=== PATIENT | male | born 1965 | race American Indian/Alaskan Native ===

== ENCOUNTER → 2023-06-16 10:42 | Outpatient (CLI) | payer OTHER, MEDICAID, SELFPAY ==
[2023-06-16 19:01] LABS: Add Manual Diff / Slide Review NO; Basophils Absolute Auto 100 /uL (0-100); Basophils Percent Auto 0.9 % (0-2); Eosinophils Absolute Auto 300 /uL (0-450); Eosinophils Percent Auto 5.7 % (2-4); Hematocrit 41.5 % (41-53); Hemoglobin 14.2 g/dL (13.5-17.5); Lymphocytes Absolute Auto 1600 /uL (1100-4500); Lymphocytes Percent Auto 27.7 % (25-40); Mean Corpuscular HGB Conc 34.1 % (30-36); Monocytes Absolute Auto 800 /uL (0-900); Monocytes Percent Auto 13.2 % (3-14); Neutrophils Absolute Auto 3000 /uL (1500-7000); Neutrophils Percent Auto 52.5 % (50-75); Platelet Count 201 X10^3/uL (150-400); Red Blood Cell Count 4.72 X10^6/uL (4.5-5.9); White Blood Cell Count 5.7 X10^3/uL (4.5-11.0)
[2023-06-16 19:27] LABS: Alanine Aminotransferase 21 IU/L (<50); Albumin Globulin Ratio 1.2 (1.0-2.8); Alkaline Phosphatase 63 U/L (38-126); Aspartate Aminotransferase 24 IU/L (17-59); BUN Creatinine Ratio 21.7 (6-22); Bilirubin Total 0.4 mg/dL (0.2-1.3); Blood Urea Nitrogen 20 mg/dL (9-20); Calcium 9.6 mg/dL (8.4-10.2); Carbon Dioxide 30 mmol/L (22-32); Chloride 103 mmol/L (98-107); Cholesterol 169 mg/dL (140-199); Estimated Glomerular Filt Rate > 60 mL/min (>60); Globulin 3.3 g/dL (1.7-4.1); Glucose 90 mg/dL (70-100); HDL Cholesterol 32 mg/dL (40-60); HEMOLYSIS < 15 (0-50); LDL Cholesterol Calculated 96 mg/dL (<100); Potassium 4.6 mmol/L (3.4-5.1); Sodium 140 mmol/L (137-145); Total Protein 7.3 g/dL (6.3-8.2); Triglycerides 206 mg/dL (35-150)
[2023-06-16 20:11] LABS: TSH w/ Reflex to FT4 0.51 uIU/mL (0.47-4.68)
== END ==
PROVIDERS: PCP Physician Assistant Medical; Visit Provider Physician Assistant Medical
DX: Z11.2 Encounter for screening for other bacterial diseases (principal)
CPT/HCPCS: 80053; 80061; 84443; 85025

== ENCOUNTER → 2023-10-25 11:55 | Outpatient (CLI) | payer OTHER, MEDICAID, SELFPAY | PROVIDERS: PCP Physician Assistant Medical; Visit Provider Physician Assistant Medical | DX: T14.8XXA Other injury of unspecified body region, initial encounter (principal); W50.3XXA Accidental bite by another person, initial encounter | CPT/HCPCS: 87070; 87075; 87205 ==

== ENCOUNTER → 2023-11-02 13:03 | Outpatient (CLI) | payer OTHER, MEDICAID, SELFPAY ==
[2023-11-02 19:28] LABS: Add Manual Diff / Slide Review NO; Basophils Absolute Auto 0 /uL (0-100); Basophils Percent Auto 0.8 % (0-2); Eosinophils Absolute Auto 100 /uL (0-450); Eosinophils Percent Auto 2.1 % (2-4); Hemoglobin 13.8 g/dL (13.5-17.5); Lymphocytes Absolute Auto 1500 /uL (1100-4500); Lymphocytes Percent Auto 30.8 % (25-40); Mean Corpuscular HGB Conc 34.5 % (30-36); Mean Corpuscular Hemoglobin 30.5 PG (26-34); Mean Corpuscular Volume 88.4 fL (80-100); Monocytes Absolute Auto 700 /uL (0-900); Monocytes Percent Auto 13.6 % (3-14); Neutrophils Absolute Auto 2600 /uL (1500-7000); Neutrophils Percent Auto 52.7 % (50-75); Platelet Count 257 X10^3/uL (150-400); Red Blood Cell Count 4.53 X10^6/uL (4.5-5.9); Red Cell Distribution Width 12.8 % (11.6-14.8)
[2023-11-02 19:55] LABS: Alanine Aminotransferase 20 IU/L (<50); Albumin 4.4 g/dL (3.5-5.0); Albumin Globulin Ratio 1.5 (1.0-2.8); Alkaline Phosphatase 73 U/L (38-126); Aspartate Aminotransferase 27 IU/L (17-59); BUN Creatinine Ratio 30.4 (6-22); Bilirubin Total 0.6 mg/dL (0.2-1.3); Blood Urea Nitrogen 28 mg/dL (9-20); Calcium 9.7 mg/dL (8.4-10.2); Carbon Dioxide 29 mmol/L (22-32); Chloride 104 mmol/L (98-107); Estimated Glomerular Filt Rate > 60 mL/min (>60); Glucose 95 mg/dL (70-100); HEMOLYSIS < 15 (0-50); Potassium 3.8 mmol/L (3.4-5.1); Sodium 138 mmol/L (137-145); Total Protein 7.4 g/dL (6.3-8.2)
[2023-11-02 20:12] LABS: TSH w/ Reflex to FT4 0.77 uIU/mL (0.47-4.68)
== END ==
PROVIDERS: PCP Physician Assistant Medical; Visit Provider Physician Assistant Medical
DX: R21 Rash and other nonspecific skin eruption (principal); Z22.322 Carrier or suspected carrier of Methicillin resistant Staphylococcus aureus; Z11.2 Encounter for screening for other bacterial diseases; R53.83 Other fatigue
CPT/HCPCS: 80053; 84443; 85025

== ENCOUNTER → 2024-01-25 12:32 | Outpatient (CLI) | payer OTHER, MEDICAID, SELFPAY ==
[2024-01-25 20:22] LABS: HEMOLYSIS < 15 (0-50)
[2024-01-25 20:28] LABS: Blood Urea Nitrogen 20 mg/dL (9-20); Sodium 139 mmol/L (137-145)
[2024-01-25 20:29] LABS: BUN Creatinine Ratio 19.6 (6-22); Calcium 8.9 mg/dL (8.4-10.2); Carbon Dioxide 26 mmol/L (22-32); Chloride 109 mmol/L (98-107); Estimated Glomerular Filt Rate > 60 mL/min (>60); Glucose 100 mg/dL (70-100); Potassium 4.3 mmol/L (3.4-5.1)
[2024-01-25 21:15] LABS: HIV 1 & 2 Ab/Ag 4th Gen Combo NEGATIVE (NEGATIVE); Hep C Virus Ab w/Reflex Quant REACTIVE s/c (NEGATIVE)
[2024-01-25 23:07] LABS: Folate 9.3 ng/mL (2.76-20.0); Vitamin B12 311 pg/mL (239-931)
[2024-01-27 05:14] LABS: RPR Screen Non Reactive (Non Reactive)
[2024-01-27 21:09] LABS: Treponema pallidum Antibodies Non Reactive (Non Reactive)
== END ==
PROVIDERS: PCP Physician Assistant Medical; Referring Provider Family Medicine; Visit Provider Family Medicine
DX: F22 Delusional disorders (principal); Z87.820 Personal history of traumatic brain injury; F07.81 Postconcussional syndrome; R41.840 Attention and concentration deficit; R21 Rash and other nonspecific skin eruption; R41.89 Other symptoms and signs involving cognitive functions and awareness; R46.89 Other symptoms and signs involving appearance and behavior; Z86.19 Personal history of other infectious and parasitic diseases; Z12.5 Encounter for screening for malignant neoplasm of prostate
CPT/HCPCS: 80048; 82607; 82746; 86592; 86780; 86803; 87389; 87522; G0103

== ENCOUNTER → 2024-01-27 15:16 | Outpatient (CLI) | payer OTHER, MEDICAID, SELFPAY ==
--- NOTE | 2024-01-27 16:00 | DI.MRI.S_ITS ---
PROCEDURE: MR SHOULDER RT WO CON INDICATIONS: not improving with PT TECHNIQUE: Noncontrast oblique coronal T2 fast spin echo with fat saturation, oblique sagittal T1 spin echo and T2 fast spin echo with fat saturation, axial T1 spin echo and T2 fast spin echo with fat saturation through the shoulder. COMPARISON: None. FINDINGS: Image quality: Excellent. Rotator cuff: Full-thickness tearing of the entire supraspinatus tendon with medial retraction and atrophy. Full-thickness tearing of the anterior infraspinatus tendon at the humeral insertion site. Low-grade intrasubstance tearing of the mid and posterior infraspinatus tendon at the humeral insertion site. Subscapularis tendon demonstrates low-grade articular surface tearing of its upper and midportion at the humeral insertion site. Teres minor is intact. Bones and bursae: No bone marrow contusions or fractures. There is moderate ill-defined T2 signal elevation within the anterosuperior aspect of the humeral head, consistent with degenerative marrow edema. Superior subluxation of the humeral head. Moderate glenohumeral and acromioclavicular joint degeneration. The acromion demonstrates conventional anatomy, without an os acromiale. No pathologic subacromial-subdeltoid or subcoracoid bursal fluid is present. Capsule and soft tissues: Diffuse degenerative fraying of the glenoid labrum is present, especially posteriorly where there is undercutting. The long head of the biceps tendon demonstrates normal location and morphology. The rotator interval appears normal, without fibrosis. The coracohumeral ligament is normal in thickness. IMPRESSION: 1. Acromioclavicular and glenohumeral joint osteoarthritis. 2. Full-thickness tearing and atrophy of the supraspinatus . 3. Full-thickness tearing of the anterior infraspinatus tendon. 4. Low-grade tearing of the subscapularis tendon. 5. Glenoid labral tearing. Dictated by: Shawn Arndt M.D. on 01/29/2024 at 11:27 Approved by: Shawn Arndt M.D. on 01/29/2024 at 11:35
== END ==
PROVIDERS: PCP Physician Assistant Medical; Referring Provider Physician Assistant Medical; Visit Provider Physician Assistant Medical
DX: M75.121 Complete rotator cuff tear or rupture of right shoulder, not specified as traumatic (principal); M19.011 Primary osteoarthritis, right shoulder; M25.511 Pain in right shoulder; S43.491A Other sprain of right shoulder joint, initial encounter
CPT/HCPCS: 73221

== ENCOUNTER 2024-05-27 21:33 | Inpatient (IN) | payer OTHER, MEDICAID, SELFPAY ==
[2024-05-27 21:43] VITALS: BP 135/83; PULSE 105; O2SAT 100
[2024-05-27 21:49] VITALS: BP 135/83; PULSE 104; RESP 22; TEMP 37.1; O2SAT 100; BMI 26.3
[2024-05-27 22:00] VITALS: BP 120/66; PULSE 103; O2SAT 100
--- NOTE | 2024-05-27 22:26 | DI.RAD.S_ITS ---
PROCEDURE: XR CHEST 1V INDICATIONS: chest pain TECHNIQUE: One view of the chest was acquired. COMPARISON: None. FINDINGS: Surgical changes and devices: None. Lungs and pleura: Lungs are clear. No pleural effusions or pneumothorax. Mediastinum: Mediastinal contours appear normal. Heart size is normal. Bones and chest wall: No suspicious bony lesions. Overlying soft tissues appear unremarkable. IMPRESSION: No acute pulmonary process. Dictated by: Che Umaña M.D. on 05/27/2024 at 23:06 Approved by: Che Umaña M.D. on 05/27/2024 at 23:08
[2024-05-27 22:30] VITALS: BP 127/74; PULSE 98; O2SAT 98
[2024-05-27 22:39] LABS: Add Manual Diff / Slide Review NO; Basophils Absolute Auto 100 /uL (0-100); Basophils Percent Auto 1.2 % (0-2); Eosinophils Absolute Auto 100 /uL (0-450); Eosinophils Percent Auto 1.5 % (2-4); Hemoglobin 13.6 g/dL (13.5-17.5); Lymphocytes Absolute Auto 1800 /uL (1100-4500); Lymphocytes Percent Auto 23.2 % (25-40); Mean Corpuscular HGB Conc 34.1 % (30-36); Mean Corpuscular Hemoglobin 29.9 PG (26-34); Mean Corpuscular Volume 87.9 fL (80-100); Monocytes Absolute Auto 800 /uL (0-900); Monocytes Percent Auto 10.6 % (3-14); Neutrophils Absolute Auto 4800 /uL (1500-7000); Neutrophils Percent Auto 63.5 % (50-75); Platelet Count 256 X10^3/uL (150-400); Prothrombin Time 11.2 SECONDS (9.4-12.5); Red Blood Cell Count 4.55 X10^6/uL (4.5-5.9); Red Cell Distribution Width 12.9 % (11.6-14.8); White Blood Cell Count 7.6 X10^3/uL (4.5-11.0)
[2024-05-27 22:42] LABS: PTT Partial Thromboplastin Tim 31 SECONDS (25.1-36.5)
[2024-05-27 22:44] LABS: Alanine Aminotransferase 22 IU/L (<50); Albumin 3.9 g/dL (3.5-5.0); Albumin Globulin Ratio 1.1 (1.0-2.8); Alkaline Phosphatase 80 U/L (38-126); Aspartate Aminotransferase 29 IU/L (17-59); Bilirubin Total 0.4 mg/dL (0.2-1.3); Blood Urea Nitrogen 19 mg/dL (9-20); Calcium 9.3 mg/dL (8.4-10.2); Carbon Dioxide 28 mmol/L (22-32); Chloride 105 mmol/L (98-107); Creatine Kinase 123 U/L (55-170); Estimated Glomerular Filt Rate > 60 mL/min (>60); Globulin 3.5 g/dL (1.7-4.1); Glucose 110 mg/dL (70-100); HEMOLYSIS 20 (0-50); Magnesium 1.8 mg/dL (1.6-2.3); Sodium 136 mmol/L (137-145); Total Protein 7.4 g/dL (6.3-8.2)
--- NOTE | 2024-05-27 22:47 | EKG_ITS ---
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
[2024-05-27 22:56] LABS: NT-proBNP (BNP-Adult 18+) 97 pg/mL (<125); Troponin I < 0.012 ng/mL (0.01-0.034)
[2024-05-27 23:00] VITALS: BP 119/68; PULSE 99; O2SAT 98
[2024-05-27 23:30] VITALS: BP 126/68; PULSE 96; RESP 18; O2SAT 98
--- NOTE | 2024-05-27 23:42 | ED_ITS ---
HPI - Extremity Problem General Chief complaint: Extremity Problem,Nontraumatic Stated complaint: Sent by manufacturing inspector in [place], Legs Swelling Time Seen by Provider: 05/27/24 23:42 Source: patient, RN notes reviewed and old records reviewed Mode of arrival: Ambulatory Limitations: no limitations History of Present Illness HPI Narrative: 59-year-old male history of chronic bilateral lower extremity edema, TBI, substance abuse who presents with complaint of chronic lower extremity swelling but increasing on his right side with increasing redness, warmth and discomfort. Patient states he has had cellulitis in his extremities before was treated at [place]. Patient states no fevers but felt feverish today. Denies chest pain or shortness of breath no nausea or vomiting. Normal bowel movements and urination. Notes he has had chronic lower extremity edema but right side has worsened recently. He notes several spots around the knee. Has pain over the lower leg tracking up towards the knee. Has good range of motion of his lower extremity. States he has been able to walk. But but does not recall any obvious trauma cuts or lacerations. States no prescription medications currently. No recent surgeries. Denies any drug allergies. Does use tobacco daily, occasional alcohol, uses methamphetamine denies any injection or IV drugs in several years. Related Data Home Medications Medication Instructions Recorded Confirmed No Known Home Medications 03/07/24 03/07/24 Allergies Allergy/AdvReac Type Severity Reaction Status Date / Time No Known Drug Allergies Allergy Verified 03/07/24 15:18 Review of Systems Review of Systems ROS Unobtainable: All systems reviewed & are unremarkable except as noted in HPI and below Patient History Social History Smoking Status: Current every day smoker Smoking Status: Current every day smoker tobacco type: cigarettes alcohol intake frequency: holidays/special occasions only Substance Use Type: amphetamines Exam Narrative Exam Narrative: GENERAL: Alert and oriented x three, male in mild distress. HEENT: Head normocephalic, atraumatic, EOMI, pupils reactive, face symmetric, moist mucous membranes NECK: Supple, full range of motion CARDIOVASCULAR: Regular rate and rhythm without murmurs, rubs or gallops. RESPIRATORY: Breath sounds equal bilaterally, no wheezes rales or rhonchi. ABDOMEN: Soft, nontender. Normoactive bowel sounds all 4 quadrants. No guarding or rebound, rigidity, no mass : No CVA tenderness EXTREMITIES: Normal range of motion, no clubbing, patient has bilateral lower extremity edema right greater than left but does have warmth erythema as well as some foul odor the right lower extremity. No open wounds but patient has several scabbed over areas above lateral and below the knee with edema and warmth tracking down the entire calf into the dorsum of the foot. Erythema is circumferential for the entire lower leg it does track up above the thigh as well. Patient has good range of motion. No large effusion over the knee. No active drainage. Neurovascularly intact. Cap refill less than 2 seconds bilateral lower extremities. NEUROLOGICAL: Cranial nerves II through XII grossly intact. Moving all extremities SKIN: Warm, dry, no petechiae, no rashes or lesions. Initial Vital Signs Initial Vital Signs: Vital Signs Pulse Rate 105 H 05/27/24 21:43 Blood Pressure 135/83 05/27/24 21:43 Pulse Oximetry 100 05/27/24 21:43 Course Orders Ordered: ED Orders 05/27/24 21:52 Consult to FARM MACHINERY ASSEMBLER - Tinsmith Apprentice Stat 05/27/24 21:54 Complete Blood Count AUTO DIFF Stat Comprehensive Metabolic Panel Stat Lactate (Lactic Acid) Stat Magnesium Stat NT-proBNP (BNP-Adult 18+) Stat PTT Partial Thromboplastin Tristin Stat Procalcitonin Stat Prothrombin Time INR Stat Troponin & CK Cardiac Panel Stat 05/27/24 22:26 XR chest 1V Stat EKG-12 Lead Stat 05/27/24 23:52 US periph venous low extrem rt Stat 05/27/24 23:54 Blood Culture Stat Acetaminophen (Acetaminophen 325 Mg Tablet) 650 mg PO Q6H PRN PRN Reason: Fever/Mild Pain (1-3) Enoxaparin Sodium (Enoxaparin 40 Mg/0.4 Ml Syringe) 40 mg SUBCUT DAILY LEWIS Hydromorphone HCl (Hydromorphone 2 Mg Tablet) 4 mg PO Q4HR PRN PRN Reason: Pain, Severe (7-10) Sodium Chloride (Normal Saline 0.9%) 1,000 mls @ 100 mls/hr IV CONT LEWIS Last Admin: 05/28/24 03:10 Dose: 100 mls/hr Documented By: Ceftriaxone Sodium 1,000 mg/ (Sodium Chloride) 100 mls @ 200 mls/hr IV 2100 LEWIS Vancomycin HCl/Dextrose (Vancomycin) 1,500 mg in 300 mls @ 200 mls/hr IV Q12H LEWIS Naloxone HCl (Naloxone 0.4 Mg/Ml Vial) 0.2 mg IV Q2MIN PRN PRN Reason: Opiate Reversal Ondansetron HCl (Ondansetron 4 Mg/2 Ml Inj) 4 mg IV Q8HR PRN PRN Reason: Nausea And Vomiting Oxycodone HCl (Oxycodone Ir 5 Mg Tablet) 5 mg PO Q3H PRN PRN Reason: Pain, Moderate (4-6) Last Admin: 05/28/24 03:10 Dose: 5 mg Documented By: SINTIA Vancomycin HCl (Vancomycin Per Pharmacy) 1 request MISC NOW PRN PRN Reason: cellulitis Discontinued Medications Vancomycin HCl/Dextrose (Vancomycin) 1,500 mg in 300 mls @ 200 mls/hr IV NOW ONE Stop: 05/28/24 01:21 Last Infusion: 05/28/24 02:19 Dose: Infused Documented By: Admin: 05/28/24 00:37 Dose: 200 mls/hr Documented By: MARYLOU Ceftriaxone Sodium 1,000 mg/ (Sodium Chloride) 100 mls @ 200 mls/hr IV NOW ONE Stop: 05/27/24 23:53 Last Infusion: 05/28/24 00:43 Dose: Infused Documented By: Admin: 05/28/24 00:15 Dose: 200 mls/hr Documented By: MARYLOU Ketorolac Tromethamine (Ketorolac 30 Mg/Ml Vial) 15 mg IV NOW ONE Stop: 05/27/24 23:53 Last Admin: 05/28/24 00:15 Dose: 15 mg Documented By: MARYLOU Vital Signs Vital signs: Vital Signs - 8 hr 05/27/24 21:43 05/27/24 21:43 05/27/24 21:49 Temperature 98.7 F Pulse Rate 105 H 104 H Respiratory Rate 22 Blood Pressure 135/83 135/83 Pulse Oximetry 100 100 Oxygen Delivery Method Room Air 05/27/24 22:00 05/27/24 22:00 05/27/24 22:30 Temperature Pulse Rate 103 H Respiratory Rate Blood Pressure 120/66 127/74 Pulse Oximetry 100 Oxygen Delivery Method 05/27/24 22:30 05/27/24 23:00 05/27/24 23:00 Temperature Pulse Rate 98 H 99 H Respiratory Rate Blood Pressure 119/68 Pulse Oximetry 98 98 Oxygen Delivery Method 05/27/24 23:30 05/27/24 23:30 05/28/24 00:00 Temperature Pulse Rate 96 H 103 H Respiratory Rate 18 18 Blood Pressure 126/68 Pulse Oximetry 98 98 Oxygen Delivery Method Room Air 05/28/24 00:00 05/28/24 00:30 05/28/24 00:30 Temperature Pulse Rate 96 H Respiratory Rate Blood Pressure 121/65 135/77 Pulse Oximetry 98 Oxygen Delivery Method 05/28/24 01:00 05/28/24 01:00 05/28/24 01:30 Temperature Pulse Rate 96 H 110 H Respiratory Rate 18 16 Blood Pressure 121/63 Pulse Oximetry 100 100 Oxygen Delivery Method Room Air 05/28/24 01:30 Temperature Pulse Rate Respiratory Rate Blood Pressure 145/80 H Pulse Oximetry Oxygen Delivery Method MDM - Extremity (Nontraumatic) Lab Data 05/27/24 21:54 05/27/24 21:54 Labs: Lab Results 05/27/24 Range/Units 21:54 WBC 7.6 (4.5-11.0) X10^3/uL RBC 4.55 (4.5-5.9) X10^6/uL Hgb 13.6 (13.5-17.5) g/dL Hct 40.0 L (41-53) % MCV 87.9 (80-100) fL MCH 29.9 (26-34) PG MCHC 34.1 (30-36) % RDW 12.9 (11.6-14.8) % Plt Count 256 (150-400) X10^3/uL Neut % (Auto) 63.5 (50-75) % Lymph % (Auto) 23.2 L (25-40) % [place] % (Auto) 10.6 (3-14) % Eos % (Auto) 1.5 L (2-4) % Baso % (Auto) 1.2 (0-2) % Neut # (Auto) 4800 (7829-4909) /uL Lymph # (Auto) 1800 (4981-4581) /uL [place] # (Auto) 800 (0-900) /uL Eos # (Auto) 100 (0-450) /uL Baso # (Auto) 100 (0-100) /uL PT 11.2 (9.4-12.5) SECONDS INR 1.0 (0.9-1.3) APTT 31 (25.1-36.5) SECONDS Sodium 136 L (137-145) mmol/L Potassium 4.0 (3.4-5.1) mmol/L Chloride 105 (98-107) mmol/L Carbon Dioxide 28 (22-32) mmol/L BUN 19 (9-20) mg/dL Creatinine 0.95 (0.66-1.25) mg/dL Estimated GFR > 60 (>60) mL/min BUN/Creatinine Ratio 20.0 (6-22) Glucose 110 H (70-100) mg/dL Lactate 1.3 (0.7-2.1) mmol/L Calcium 9.3 (8.4-10.2) mg/dL Magnesium 1.8 (1.6-2.3) mg/dL Total Bilirubin 0.4 (0.2-1.3) mg/dL AST 29 (17-59) IU/L ALT 22 (<50) IU/L Alkaline Phosphatase 80 (38-126) U/L Total Creatine Kinase 123 (55-170) U/L Troponin I < 0.012 (0.01-0.034) ng/mL NT-Pro-B Natriuret Pep 97 (<125) pg/mL Total Protein 7.4 (6.3-8.2) g/dL Albumin 3.9 (3.5-5.0) g/dL Globulin 3.5 (1.7-4.1) g/dL Albumin/Globulin Ratio 1.1 (1.0-2.8) Procalcitonin 0.105 (<0.5) ng/mL Imaging Data Chest x-ray: Radiologist's Impression: [address] [address] XRay Report Signed Patient: Norm Cole MR#: [id number] : 1965 Acct:[id number] Age/Sex: 59 / M Date of Service: 05/27/24 Loc: ED Accession Number: [id number] Procedure: XR chest 1V Ordering Provider: Lucy Feldman D.O. PROCEDURE: XR CHEST 1V INDICATIONS: chest pain TECHNIQUE: One view of the chest was acquired. COMPARISON: None. FINDINGS: Surgical changes and devices: None. Lungs and pleura: Lungs are clear. No pleural effusions or pneumothorax. Mediastinum: Mediastinal contours appear normal. Heart size is normal. Bones and chest wall: No suspicious bony lesions. Overlying soft tissues appear unremarkable. IMPRESSION: No acute pulmonary process. Dictated by: Che Umaña M.D. on 05/27/2024 at 23:06 Approved by: Che Umaña M.D. on 05/27/2024 at 23:08 ? ECG Data Attestation EKG: I personally reviewed and interpreted this ECG as follows: Interpretation: Sinus rhythm rate of 97 [place] 142 QRS of 94 QTC [address] No acute ST elevation depression noted. MDM Narrative Medical decision making narrative: Labs show white count of 7.6 hemoglobin of 13.6 platelets of 256. Coags are negative sodium is 136 otherwise appropriate electrolytes BUN 19 creatinine 0.95 glucose is 110 troponins less than 0.012 with a BNP of 97. CXR no acute change. Lactate is 1.3 procalcitonin 0.15 blood cultures are pending Sinus rhythm rate of 97 [place] 142 QRS of [address] elevation depression noted. DVT ultrasound prelim is negative. Does have some edema. Technical issues with [facility] images have not been able to be pushed over 2 packs or real rad so formal report may not be available tonight. Patient received Rocephin and vancomycin as well as Toradol. 59-year-old male history of chronic methamphetamine use, TBI has had chronic lower extremity edema right increasing over left appears to have developed a cellulitis in his right lower extremity tracking from the foot up beyond the knee. Patient is slightly tachycardic but no other sepsis criteria currently. Spoke with hospitalist Dr. Anderson, regarding admission for cellulitis of right lower extremity, patient has got some slight tachycardia but no other signs of sepsis patient is overall nontoxic appearing. Accepts for inpatient tele Discharge Plan Departure Patient Disposition: Admitted As Inpatient Clinical Impression: Cellulitis of right lower extremity Admit Date/Time: 05/28/24 01:33 Admit Provider: Arya Anderson
--- NOTE | 2024-05-27 23:52 | DI.US.S_ITS ---
PROCEDURE: US PERIPH VENOUS LOW EXTREM RT INDICATIONS: EDEMA, ERYTHEMA TECHNIQUE: Real-time imaging, as well as color and pulse Doppler interrogation, were performed of the lower extremity deep veins from the inguinal ligament to the popliteal fossa, with documentation of the visualized calf veins. 11 images. COMPARISON: None. FINDINGS: The common femoral, femoral, popliteal, and the visualized calf veins are normally compressible, and free of intraluminal thrombus. Color and pulse Doppler demonstrate normal phasic intraluminal flow. There is normal augmentation response to distal compression maneuver. IMPRESSION: No ultrasound evidence of right lower extremity deep venous thrombosis. Preliminary report was provided by [facility] Stormy Hernandez MD May 28, 2024 at 6:16 a.m. Dictated by: Derick Del Rosario M.D. on 05/28/2024 at 7:19 Approved by: Derick Del Rosario M.D. on 05/28/2024 at 7:23
[2024-05-28] VITALS (11 sets, daily range): BP systolic 109–145; BP diastolic 63–95; PULSE 78–110; RESP 12–18; TEMP 36.2–37.4; O2SAT 92–100; BMI 27.4
[2024-05-28 00:11] LABS: Lactate (Lactic Acid) 1.3 mmol/L (0.7-2.1)
[2024-05-28] MEDS: cefTRIAXone 1,000 MG in SODIUM CHLORIDE 0.9% 100 ML 200 MG IV ×2 (00:15→21:50)
[2024-05-28] MEDS: KETOROLAC 30 MG/ML VIAL 15 MG IV (00:15)
[2024-05-28 00:29] LABS: Procalcitonin 0.105 ng/mL (<0.5)
[2024-05-28] MEDS: VANCOMYCIN 1,500 MG/300 ML PIGGYBACK 200 MG IV ×2 (00:37→12:46)
--- NOTE | 2024-05-28 01:19 | PC.NURSE ---
Pt resting quietly with eyes closed, resps even and not labored. No distress noted at this time. Pt remains connected to vs monitor with alarms on and audible. Call light within reach.
[2024-05-28] MEDS: SODIUM CHLORIDE 0.9% 1,000 ML 100 ML IV (03:10)
[2024-05-28] MEDS: OXYCODONE IR 5 MG TABLET PO (03:10)
--- NOTE | 2024-05-28 04:50 | PC.NURSE ---
Pt admitted to AC unit at 02:30. Alert and oriented x 4, cooperative. NS @ 100/hr. had sandwich and ice cream. Oriented to room and call light. Bed alarm on and call light within reach.
[2024-05-28 05:12] LABS: Add Manual Diff / Slide Review NO; Basophils Absolute Auto 0 /uL (0-100); Basophils Percent Auto 0.9 % (0-2); Eosinophils Absolute Auto 200 /uL (0-450); Hemoglobin 11.9 g/dL (13.5-17.5); Lymphocytes Absolute Auto 1600 /uL (1100-4500); Lymphocytes Percent Auto 29.9 % (25-40); Mean Corpuscular HGB Conc 34.1 % (30-36); Mean Corpuscular Hemoglobin 29.9 PG (26-34); Mean Corpuscular Volume 87.8 fL (80-100); Monocytes Absolute Auto 700 /uL (0-900); Monocytes Percent Auto 13.5 % (3-14); Neutrophils Absolute Auto 2800 /uL (1500-7000); Neutrophils Percent Auto 52.7 % (50-75); Platelet Count 205 X10^3/uL (150-400); Red Blood Cell Count 3.99 X10^6/uL (4.5-5.9); White Blood Cell Count 5.4 X10^3/uL (4.5-11.0)
[2024-05-28 05:24] LABS: Alanine Aminotransferase 18 IU/L (<50); Albumin 3.4 g/dL (3.5-5.0); Albumin Globulin Ratio 1.2 (1.0-2.8); Alkaline Phosphatase 73 U/L (38-126); Aspartate Aminotransferase 23 IU/L (17-59); Bilirubin Total 0.3 mg/dL (0.2-1.3); Blood Urea Nitrogen 22 mg/dL (9-20); Calcium 8.8 mg/dL (8.4-10.2); Carbon Dioxide 28 mmol/L (22-32); Chloride 106 mmol/L (98-107); Estimated Glomerular Filt Rate > 60 mL/min (>60); Globulin 2.9 g/dL (1.7-4.1); Glucose 119 mg/dL (70-100); HEMOLYSIS < 15 (0-50); Potassium 4.1 mmol/L (3.4-5.1); Sodium 138 mmol/L (137-145); Total Protein 6.3 g/dL (6.3-8.2)
--- NOTE | 2024-05-28 06:42 | P.HP_ITS ---
History of Present Illness History of Present Illness Chief complaint: Sent by activity leader in [place], Legs Swelling Narrative: 59 year-old male with past medical history of methamphetamine abuse, chronic bilateral low extremity lymphedema, TBI presents with complaint of bilateral legs swelling with right leg worsening edema and redness. Per the patient's report, the patient does have a history of recurrent cellulitis in his legs. The patient notice over the last few days there has been increasing redness, swelling and pain in his right leg. The patient does have some scabs around his right knee but denies any pain with flexion or movement of his right knee. The patient does have subjective fever but denies any chills, nausea, vomiting, diarrhea, chest pain or shortness of breath. The patient denies any injury to his right leg or puncture wound. Denies any IV drug use to his right leg. In our emergency room, the patient was hemodynamically stable without sign of sepsis. However per our physician the patient has significant signs cellulitis though there's no clinical involvement of the right knee per our ER physician. Doppler of RLEs was negative for DVT. Patient was given IV Ceftriaxone and IV vancomycin. [facility] Social History Smoking Status: Current every day smoker Meds Home Medications and Allergies Home Medications Medication Instructions Recorded Confirmed Type No Known Home Medications 03/07/24 05/28/24 History Allergies Allergy/AdvReac Type Severity Reaction Status Date / Time No Known Drug Allergies Allergy Verified 03/07/24 15:18 Review of Systems Review of Systems ROS: Yes All systems reviewed with the patient and are negative except as otherwise documented Exam Vital Signs (past 8 hours): - 05/27/24 23:00 05/27/24 23:00 05/27/24 23:30 Temperature Pulse Rate 99 H 96 H Respiratory Rate 18 Blood Pressure 119/68 Pulse Oximetry 98 98 Oxygen Delivery Method Oxygen Flow Rate 05/27/24 23:30 05/28/24 00:00 05/28/24 00:00 Temperature Pulse Rate 103 H Respiratory Rate 18 Blood Pressure 126/68 121/65 Pulse Oximetry 98 Oxygen Delivery Method Room Air Oxygen Flow Rate 05/28/24 00:30 05/28/24 00:30 05/28/24 01:00 Temperature Pulse Rate 96 H Respiratory Rate Blood Pressure 135/77 121/63 Pulse Oximetry 98 Oxygen Delivery Method Oxygen Flow Rate 05/28/24 01:00 05/28/24 01:30 05/28/24 01:30 Temperature Pulse Rate 96 H 110 H Respiratory Rate 18 16 Blood Pressure 145/80 H Pulse Oximetry 100 100 Oxygen Delivery Method Room Air Oxygen Flow Rate 05/28/24 02:00 05/28/24 02:00 05/28/24 02:00 Temperature Pulse Rate 92 H Respiratory Rate 14 Blood Pressure 117/67 Pulse Oximetry 99 Oxygen Delivery Method Room Air Room Air Oxygen Flow Rate 05/28/24 02:45 05/28/24 04:00 Temperature 97.9 F 98.3 F Pulse Rate 83 86 Respiratory Rate 16 12 Blood Pressure 109/72 123/73 Pulse Oximetry 98 96 Oxygen Delivery Method Oxygen Flow Rate 0 0 Oxygen Delivery Method Room Air Oxygen Flow Rate 0 Narrative Exam Narrative: GENERAL: The patient is not in any acute distressed. Awake and alert. HEENT: Nonicteric sclerae, PERRLA, EOMI. Oropharynx clear. Moist mucous membranes. Conjunctivae appear well perfused. HEART: Regular rate and rhythm without murmurs. No lower extremities edema. LUNGS: Clear to auscultation bilaterally. No wheezing, crackles or rhonchi ABDOMEN: Soft, positive bowel sounds, nontender. SKIN: Bilateral leg edema but R > L with significant erythema below right knee No open lesion noted to some scabs around right knee. NEUROLOGIC: AxO x 3. Cranial nerves II-XII intact without motor/sensory deficit. Objective Labs 05/28/24 04:40 05/28/24 04:40 Labs: Laboratory Results - last 24 hr 05/27/24 05/28/24 21:54 04:40 WBC 7.6 5.4 RBC 4.55 3.99 L Hgb 13.6 11.9 L Hct 40.0 L 35.0 L MCV 87.9 87.8 MCH 29.9 29.9 MCHC 34.1 34.1 RDW 12.9 13.0 Plt Count 256 205 Neut % (Auto) 63.5 52.7 Lymph % (Auto) 23.2 L 29.9 [place] % (Auto) 10.6 13.5 Eos % (Auto) 1.5 L 3.0 Baso % (Auto) 1.2 0.9 Neut # (Auto) 4800 2800 Lymph # (Auto) 1800 1600 [place] # (Auto) 800 700 Eos # (Auto) 100 200 Baso # (Auto) 100 0 PT 11.2 INR 1.0 APTT 31 Sodium 136 L 138 Potassium 4.0 4.1 Chloride 105 106 Carbon Dioxide 28 28 BUN 19 22 H Creatinine 0.95 1.00 Estimated GFR > 60 > 60 BUN/Creatinine Ratio 20.0 22.0 Glucose 110 H 119 H Lactate 1.3 Calcium 9.3 8.8 Magnesium 1.8 Total Bilirubin 0.4 0.3 AST 29 23 ALT 22 18 Alkaline Phosphatase 80 73 Total Creatine Kinase 123 Troponin I < 0.012 NT-Pro-B Natriuret Pep 97 Total Protein 7.4 6.3 Albumin 3.9 3.4 L Globulin 3.5 2.9 Albumin/Globulin Ratio 1.1 1.2 Procalcitonin 0.105 Assessment & Plan Assessment & Plan narrative: Cellulitis of the right lower extremity. Admit the patient to medical telemetry. Continue IV Ceftriaxone and IV Vancomycin. This patient is not septic at this time and no sign of right knee involvement as well as any underlying abscess. History of methamphetamine use. Monitor for any withdrawal symptoms and will provide Ativan and narcotics if needed. DVT prophylaxis heparin Q. Code Status full code Disposition likely home in two days Time-Based Coding :: [TOTAL MINUTES] spent with patient and on the chart (including review of chart, obtaining history, exam, reviewing outside data, placing orders, documenting exam and treatment plan, and counseling patient) on [DATE].
--- NOTE | 2024-05-28 07:56 | PM.HP.1 ---
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 Per the patient's report, the patient does have a history of recurrent cellulitis in his legs. The patient notice over the last few days there has been increasing redness, swelling and pain in his right leg. The patient does have some scabs around his right knee but denies any pain with flexion or movement of his right knee. The patient does have subjective fever but denies any chills, nausea, vomiting, diarrhea, chest pain or shortness of breath. The patient denies any injury to his right leg or puncture wound. Denies any IV drug use to his right leg. In our emergency room, the patient was hemodynamically stable without sign of sepsis. However per our physician the patient has significant signs cellulitis though there's no clinical involvement of the right knee per our ER physician. Doppler of RLEs was negative for DVT. Patient was given IV Ceftriaxone and IV vancomycin. Additional information: The leg has been progressively red and swollen for about 4 days. It was today with elevation and antibiotics. No fevers, chills, or pain issues. He lives in [place]. He has been hopping around from place to place through about a places over the last year because it is very difficult to find housing on [address] [place]. He denies any abdominal pain, trauma, fevers, or chills. [facility] Social History Smoking Status: Current every day smoker Meds Home Medications and Allergies Home Medications Medication Instructions Recorded Confirmed Type No Known Home Medications 03/07/24 05/28/24 History Allergies Allergy/AdvReac Type Severity Reaction Status Date / Time No Known Drug Allergies Allergy Verified 03/07/24 15:18 Review of Systems Review of Systems Narrative: All else reviewed and otherwise unremarkable except as noted in the history and physical. Exam Vital Signs (past 8 hours): - 05/28/24 00:00 05/28/24 00:00 05/28/24 00:30 Temperature Pulse Rate 103 H 96 H Respiratory Rate 18 Blood Pressure 121/65 Pulse Oximetry 98 98 Oxygen Delivery Method Room Air Oxygen Flow Rate 05/28/24 00:30 05/28/24 01:00 05/28/24 01:00 Temperature Pulse Rate 96 H Respiratory Rate 18 Blood Pressure 135/77 121/63 Pulse Oximetry 100 Oxygen Delivery Method Room Air Oxygen Flow Rate 05/28/24 01:30 05/28/24 01:30 05/28/24 02:00 Temperature Pulse Rate 110 H 92 H Respiratory Rate 16 14 Blood Pressure 145/80 H Pulse Oximetry 100 99 Oxygen Delivery Method Room Air Oxygen Flow Rate 05/28/24 02:00 05/28/24 02:00 05/28/24 02:45 Temperature 97.9 F Pulse Rate 83 Respiratory Rate 16 Blood Pressure 117/67 109/72 Pulse Oximetry 98 Oxygen Delivery Method Room Air Oxygen Flow Rate 0 05/28/24 04:00 Temperature 98.3 F Pulse Rate 86 Respiratory Rate 12 Blood Pressure 123/73 Pulse Oximetry 96 Oxygen Delivery Method Oxygen Flow Rate 0 Oxygen Delivery Method Room Air Oxygen Flow Rate 0 Narrative Exam Narrative: NAD, alert and oriented, fluent speech, calm. Normocephalic skull, EOMI, anicteric sclera, symmetric pupils. Oropharynx unremarkable, no droop. Neck supple, midline trachea, no adenopathy. Lungs clear, normal rate and effort. Heart regular, no murmur gallop or rub. Abdomen is soft, non distended and non tender. Extremities: The right leg is red and swollen [id number]. There is no fluctuance, open ulcerations or evidence of abscess. Skin is free of rash or lesions. Joints are not swollen or deformed. Judgment appears to be normal. Objective Imaging Chest x-ray: Radiologist's impression: No acute pulmonary process. Labs 05/28/24 04:40 05/28/24 04:40 Labs: Laboratory Results - last 24 hr 05/27/24 05/28/24 21:54 04:40 WBC 7.6 5.4 RBC 4.55 3.99 L Hgb 13.6 11.9 L Hct 40.0 L 35.0 L MCV 87.9 87.8 MCH 29.9 29.9 MCHC 34.1 34.1 RDW 12.9 13.0 Plt Count 256 205 Neut % (Auto) 63.5 52.7 Lymph % (Auto) 23.2 L 29.9 [place] % (Auto) 10.6 13.5 Eos % (Auto) 1.5 L 3.0 Baso % (Auto) 1.2 0.9 Neut # (Auto) 4800 2800 Lymph # (Auto) 1800 1600 [place] # (Auto) 800 700 Eos # (Auto) 100 200 Baso # (Auto) 100 0 PT 11.2 INR 1.0 APTT 31 Sodium 136 L 138 Potassium 4.0 4.1 Chloride 105 106 Carbon Dioxide 28 28 BUN 19 22 H Creatinine 0.95 1.00 Estimated GFR > 60 > 60 BUN/Creatinine Ratio 20.0 22.0 Glucose 110 H 119 H Lactate 1.3 Calcium 9.3 8.8 Magnesium 1.8 Total Bilirubin 0.4 0.3 AST 29 23 ALT 22 18 Alkaline Phosphatase 80 73 Total Creatine Kinase 123 Troponin I < 0.012 NT-Pro-B Natriuret Pep 97 Total Protein 7.4 6.3 Albumin 3.9 3.4 L Globulin 3.5 2.9 Albumin/Globulin Ratio 1.1 1.2 Procalcitonin 0.105 Assessment & Plan Assessment & Plan narrative: 1. Cellulitis of the right lower extremity. Present on admission and active. -Admit the patient to medical telemetry. Continue IV Ceftriaxone and IV Vancomycin. This patient is not septic at this time and no sign of right knee involvement as well as any underlying abscess. 2. Methamphetamine use. Present on admission and active. -Monitor for any withdrawal symptoms and will provide Ativan and narcotics if needed. Plan: -we will continue leg elevation and antibiotics at this time. Anticipate another night of antibiotics being needed for the degree and severity of his cellulitis. DVT prophylaxis heparin SQ. Code Status full code Anticipate a 2 midnight hospital stay for treatment of cellulitis. Disposition likely home 05/29. Time-Based Coding :: 35 min spent with patient and on the chart (including review of chart, obtaining history, exam, reviewing outside data, placing orders, documenting exam and treatment plan, and counseling patient) on 05/28. Quality MIPS - Admit I confirm the patient?s Advance Care Plan is present, Code status is documented, Surrogate decision maker is in patient?s record [If Yes, STOP here]: Yes MIPS - Meds 'Current medications' to include all prescriptions, [id number] products, herbals, cannabis/cannabidiol products, and vitamin/mineral/dietary (nutritional) supplements. I have utilized all available resources to obtain, update, or review the patient?s current medications. [If Yes, STOP here]: Yes
[2024-05-28] MEDS: ENOXAPARIN 40 MG/0.4 ML SYRINGE SUBCUT (08:42)
[2024-05-28] MEDS: NICOTINE 21 MG PATCH TOP (08:43)
[2024-05-28] MEDS: SODIUM CHLORIDE 0.9% FLUSH 10 ML IV ×2 (08:43→21:51)
--- NOTE | 2024-05-28 14:45 | CM.DANOTE ---
DCP Assessment note Pt is a 59yo M here with cellulitis in his leg. PMH of meth use, lives on [place]. PCP Citlaly Hanna and Medicaid INDOOR LANDSCAPER/GARDENER reviewed EMR. per chart, pt lives on [place] in his car, chronic housing/food/financial instability. Per hospitalist, anticipate dc tomorrow. INDOOR LANDSCAPER/GARDENER entered room and introduced self and role. Pleasant and chatty, agreeable to assessment. INDOOR LANDSCAPER/GARDENER gave pt [email or web address] [place] resources. Pt reports he works with the [employer]. Has a group social worker that he works closely with. 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 Denies wanting meth use resources. INDOOR LANDSCAPER/GARDENER gave [employer] resources. Pt appreciative. Pt does not want to leave the [place] for access to other resources because he is stubborn. Pt reports someone could pick him up from the [place] [employer] port if we get him to walk on [address]. has cell phone with him. Denies other INDOOR LANDSCAPER/GARDENER/CM needs at this time. P: dc back to [place] when medically stable. Update TCM group to schedule f/u with PCP on [place]. CM team will arrange for taxi to walk on [address] to dc home when medically stable. CM team will follow for any additional DCP needs that arise. RUTH Davenport Discharge Planning/Care Management CM Discharge Assessment Start: 05/28/24 14:39 Freq: Status: Active Protocol: Document 05/28/24 14:39 (Rec: 05/28/24 14:44 [id number]) Discharge Planning Assessment Assigned Bit Gatherer RUTH Abel Advance Directives? No History Provided By Patient Prior Living Arrangements RV Independent with ADL's Yes Is patient alert and oriented? Yes Transportation Arrangement taxi to walk on [address] then group social worker on [place] will pick him up Whiteboard Updated in Patient Room with Yes name and ext. # of Bit Gatherer Review Status In Process Please Provide Date Initial DC 05/28/24 Assessment Was Performed Next Review Type Continued Stay Review
[2024-05-28] MEDS: ACETAMINOPHEN 325 MG TABLET 650 MG PO (21:50)
[2024-05-29] MEDS: VANCOMYCIN 1,500 MG/300 ML PIGGYBACK 200 MG IV (00:07)
[2024-05-29 04:00] VITALS: BP 122/70; PULSE 88; RESP 17; TEMP 36.7; O2SAT 95
[2024-05-29 06:36] LABS: Alanine Aminotransferase 16 IU/L (<50); Albumin 3.3 g/dL (3.5-5.0); Albumin Globulin Ratio 1.1 (1.0-2.8); Alkaline Phosphatase 78 U/L (38-126); Aspartate Aminotransferase 22 IU/L (17-59); BUN Creatinine Ratio 20.2 (6-22); Bilirubin Total 0.3 mg/dL (0.2-1.3); Blood Urea Nitrogen 17 mg/dL (9-20); Calcium 8.7 mg/dL (8.4-10.2); Carbon Dioxide 25 mmol/L (22-32); Chloride 106 mmol/L (98-107); Estimated Glomerular Filt Rate > 60 mL/min (>60); Globulin 2.9 g/dL (1.7-4.1); Glucose 101 mg/dL (70-100); HEMOLYSIS < 15 (0-50); Sodium 135 mmol/L (137-145); Total Protein 6.2 g/dL (6.3-8.2)
[2024-05-29 06:44] LABS: Add Manual Diff / Slide Review NO; Basophils Absolute Auto 0 /uL (0-100); Basophils Percent Auto 0.6 % (0-2); Eosinophils Absolute Auto 200 /uL (0-450); Eosinophils Percent Auto 3.4 % (2-4); Hemoglobin 12.5 g/dL (13.5-17.5); Lymphocytes Absolute Auto 1600 /uL (1100-4500); Lymphocytes Percent Auto 28.3 % (25-40); Mean Corpuscular HGB Conc 33.7 % (30-36); Mean Corpuscular Hemoglobin 29.6 PG (26-34); Mean Corpuscular Volume 87.7 fL (80-100); Monocytes Absolute Auto 800 /uL (0-900); Neutrophils Absolute Auto 3100 /uL (1500-7000); Neutrophils Percent Auto 53.7 % (50-75); Platelet Count 213 X10^3/uL (150-400); Red Blood Cell Count 4.22 X10^6/uL (4.5-5.9); Red Cell Distribution Width 12.9 % (11.6-14.8); White Blood Cell Count 5.7 X10^3/uL (4.5-11.0)
[2024-05-29 08:00] VITALS: BP 123/82; PULSE 85; RESP 16; TEMP 37.1; O2SAT 99
[2024-05-29] MEDS: ENOXAPARIN 40 MG/0.4 ML SYRINGE SUBCUT (08:07)
--- NOTE | 2024-05-29 08:54 | P.DS_ITS ---
History of Present Illness History of Present Illness Chief complaint: Sent by loan review manager in [place], Legs Swelling Narrative: From night doctor: 59 year-old male with past medical history of methamphetamine abuse, chronic bilateral low extremity lymphedema, TBI presents with complaint of bilateral legs swelling with right leg worsening edema and redness. Per the patient's report, the patient does have a history of recurrent cellulitis in his legs. The patient notice over the last few days there has been increasing redness, swelling and pain in his right leg. The patient does have some scabs around his right knee but denies any pain with flexion or movement of his right knee. The patient does have subjective fever but denies any chills, nausea, vomiting, diarrhea, chest pain or shortness of breath. The patient denies any injury to his right leg or puncture wound. Denies any IV drug use to his right leg. In our emergency room, the patient was hemodynamically stable without sign of sepsis. However per our physician the patient has significant signs cellulitis though there's no clinical involvement of the right knee per our ER physician. Doppler of RLEs was negative for DVT. Patient was given IV Ceftriaxone and IV vancomycin. Additional information: The leg has been progressively red and swollen for about 4 days. It was today with elevation and antibiotics. No fevers, chills, or pain issues. He lives in [facility]. He has been hopping around from place to place through about a places over the last year because it is very difficult to find housing on [facility]. He denies any abdominal pain, trauma, fevers, or chills. Discharge Providers Provider Date of admission: 05/28/24 01:33 Discharge Date: 05/29/24 Primary care physician: Citlaly Castellanos PA-C Consults: 05/27/24 21:52 Consult to [facility] [place] - Religion Teacher Stat Comment: Religion Teacher Consult needed for:: Homeless Comment: Pt lives in his car on [address]; states he needs help with finances in general; housing, food, etc. Has a support dog. Discharge provider: Maxwell Lowery MD Summary Hospital Course Discharge Diagnosis: 1. Cellulitis of the right lower extremity. Present on admission and improved. 2. Methamphetamine use. Present on admission and active. Hospital Course: Patient was a 59-year-old male who presented with right leg cellulitis. He had swelling and redness. This improved over the next 2 days. He was felt to be stable for discharge on the day of discharge. He will be covered with MRSA coverage given his positive MRSA screen. He was advised to elevate the leg as much as possible and that this is giron to his leg continued to improve. He was asked to see a doctor for recheck within the next week, [place] be a reasonable option as he was free [place] transportation from work as outlined in Monday. Status at Discharge Cognitive/behavioral status at discharge: oriented Functional status at discharge: independent ambulation Overall status at discharge: patient is back to baseline Time Spent with Patient Time spent: Greater than 30 minutes Exam Vital Signs (past 8 hours): - 05/29/24 04:00 Temperature 98.1 F Pulse Rate 88 Respiratory Rate 17 Blood Pressure 122/70 Pulse Oximetry 95 Oxygen Flow Rate 0 Oxygen Delivery Method Room Air Oxygen Flow Rate 0 Narrative Exam Narrative: NAD, alert and oriented. Fluent speech. Lungs are clear, normal rate and effort. Heart is regular, no murmur gallop or rub. Abdomen is soft, non distended. Extremities: Less swollen and very little redness of the right leg. No fluctuance. No focal induration. Objective ECG Impression: Normal sinus rhythm Nonspecific ST abnormality Imaging Multiple studies:: Radiologist's impression: Leg ultrasound: No ultrasound evidence of right lower extremity deep venous thrombosis. Chest x-ray: No acute pulmonary process. Labs 05/29/24 06:06 05/29/24 06:06 Labs: Laboratory Results - last 24 hr 05/29/24 06:06 WBC 5.7 RBC 4.22 L Hgb 12.5 L Hct 37.0 L MCV 87.7 MCH 29.6 MCHC 33.7 RDW 12.9 Plt Count 213 Neut % (Auto) 53.7 Lymph % (Auto) 28.3 [place] % (Auto) 14.0 Eos % (Auto) 3.4 Baso % (Auto) 0.6 Neut # (Auto) 3100 Lymph # (Auto) 1600 [place] # (Auto) 800 Eos # (Auto) 200 Baso # (Auto) 0 Sodium 135 L Potassium 4.0 Chloride 106 Carbon Dioxide 25 BUN 17 Creatinine 0.84 Estimated GFR > 60 BUN/Creatinine Ratio 20.2 Glucose 101 H Calcium 8.7 Total Bilirubin 0.3 AST 22 ALT 16 Alkaline Phosphatase 78 Total Protein 6.2 L Albumin 3.3 L Globulin 2.9 Albumin/Globulin Ratio 1.1 [facility] Social History Smoking Status: Current every day smoker Discharge Assessment & Plan Assessment and Plan Assessment: 1. Cellulitis of the right lower extremity. Present on admission and improved. 2. Methamphetamine use. Present on admission and active. Plan of Treatment: Continue doxycycline for an additional week, primary care follow up within 1 week. Return for medical attention for increased redness, swelling, pain, or fevers. Elevate the leg as much as possible. Discharge Plan Discharge Plan Patient Disposition: Home Provider Discharge Comment: Stable for discharge on oral antibiotics. Discharge orders & Medications Prescriptions: New doxycycline hyclate 100 mg capsule 100 mg PO BID Qty: 14 0RF Follow up/Referrals: Citlaly Castellanos PA-C [Primary Care Provider] - Discharge Health Status Multidrug resistant organism: MRSA Diet/Activity/Treatments Diet: Regular Skin/Wound/Dressing Care Report to your healthcare provider any signs of infection, such as:: chills, fever, increased pain, unusual drainage and unusual redness Visit Report/Discharge Packet Instructions: DI for Cellulitis -- Adult Stand Alone Forms: Patient Portal/API Discharge Data Primary Care Provider: Citlaly Castellanos
--- NOTE | 2024-05-29 09:19 | CM.DPNOTE ---
DC Note Patient has been discharged this morning. Patient requests taxi to the [facility] terminal which [facility] provides free of charge. Patient plans to walk [place] and will have someone pick him up once on [place]. Placed call to [employer]; he can have a taxi here at 0945 at the main entrance. Taxi voucher completed. Updated patient and RN. All aware and agreeable to the plan. SLIME
== END 2024-05-29 09:39 | disposition home or self-care (01) | DRG 383 ==
LOC: ED 05-28 01:32 → AC 05-28 01:34
PROVIDERS: Admitting Provider Internal Medicine; Emergency Provider Emergency Medicine; PCP Physician Assistant Medical; Referring Provider Emergency Medicine; Visit Provider Internal Medicine
DX: L03.115 Cellulitis of right lower limb (principal); F15.90 Other stimulant use, unspecified, uncomplicated; I89.0 Lymphedema, not elsewhere classified; Z87.820 Personal history of traumatic brain injury; Z22.322 Carrier or suspected carrier of Methicillin resistant Staphylococcus aureus
CPT/HCPCS: 36415; 71045; 80053; 82550; 83605; 83735; 83880; 84145; 84484; 85025; 85610; 85730; 87040; 93005; 93971; 96365; 96366; 96367; 96375; 99284; 99285; J0696; J1650; J1885

== ENCOUNTER 2024-07-09 20:52 | Emergency (ER) | payer OTHER, SELFPAY ==
[2024-05-28 02:00] VITALS: BMI 27.4
[2024-07-09 20:57] VITALS: BP 148/93; PULSE 86; RESP 18; TEMP 36.4; O2SAT 100; BMI 27.8
--- NOTE | 2024-07-09 21:08 | DI.US.S_ITS ---
PROCEDURE: US PERIP VENOUS LOW EXTREM RT INDICATIONS: EDEMA TECHNIQUE: Real-time imaging, as well as color and pulse Doppler interrogation, were performed of the lower extremity deep veins from the inguinal ligament to the popliteal fossa, with documentation of the visualized calf veins. COMPARISON: [facility], , [facility] VENOUS LOW EXTREM RT, 05/28/2024, 0:17. FINDINGS: The common femoral, femoral, popliteal, and the visualized calf veins are normally compressible, and free of intraluminal thrombus. Color and pulse Doppler demonstrate normal phasic intraluminal flow. There is normal augmentation response to distal compression maneuver. IMPRESSION: No evidence of DVT in visualized right lower extremity veins. Dictated by: Vik French M.D. on 07/09/2024 at 21:58 Approved by: Vik French M.D. on 07/09/2024 at 21:59
[2024-07-10] VITALS: BP 144/97; PULSE 96; RESP 18; O2SAT 98
[2024-07-10 00:30] VITALS: BP 149/88; PULSE 94; RESP 15; O2SAT 96
[2024-07-10 01:00] VITALS: BP 144/86; PULSE 98; RESP 24; O2SAT 99
--- NOTE | 2024-07-10 01:03 | ED_ITS ---
HPI - Extremity Problem General Chief complaint: Extremity Problem,Nontraumatic Stated complaint: rt leg possible blood clot Time Seen by Provider: 07/10/24 00:03 Source: patient Mode of arrival: Ambulatory History of Present Illness HPI Narrative: 59-year-old male presents for evaluation of right leg swelling. Patient states that he has been battling cellulitis and swelling with his lower extremities for the last year. He states that he has improvement in his swelling when he stays off his feet, however he was in the process of moving and spent several days of the last week moving boxes and spinning multiple hours on his feet. The next day his legs felt much more swollen. He saw his primary care doctor, who referred him to the ER for DVT rule out. Patient denies history of trauma, history of DVT. Related Data Previous Rx's Medication Instructions Recorded nicotine See Rx Instructions transdermal 06/12/24 21mg/24hr-14mg/24hr-7mg/24hr daily .COMPLEX #56 patches transderm patches,sequentl cephalexin 500 mg capsule 500 mg PO QID infection #28 caps 07/01/24 Allergies Allergy/AdvReac Type Severity Reaction Status Date / Time No Known Drug Allergies Allergy Verified 07/01/24 11:35 Patient History Social History Smoking Status: Current every day smoker Smoking Status: Current every day smoker tobacco type: cigarettes alcohol intake frequency: holidays/special occasions only Exam Initial Vital Signs Initial Vital Signs: Vital Signs Temperature 97.6 F 07/09/24 20:57 Pulse Rate 86 07/09/24 20:57 Respiratory Rate 18 07/09/24 20:57 Blood Pressure 148/93 H 07/09/24 20:57 Pulse Oximetry 100 07/09/24 20:57 Oxygen Delivery Method Room Air 07/09/24 20:57 Const: Awake, alert, no acute distress, nontoxic appearing Cardiac: regular rate, regular rhythm RESP: unlabored, clear bilaterally, no wheezing MSK: 2+ pitting edema to knees bilaterally Skin: Warm, Dry, intact, no excessive warmth, no erythema Neuro: AO x3, CN II-XII grossly intact, moves all extremities Course Orders Ordered: ED Orders 07/09/24 21:08 US periph venous low extrem rt Stat Vital Signs Vital signs: Vital Signs - 8 hr 07/09/24 20:57 07/10/24 00:00 07/10/24 00:00 Temperature 97.6 F Pulse Rate 86 96 H Respiratory Rate 18 18 Blood Pressure 148/93 H 144/97 H Pulse Oximetry 100 98 Oxygen Delivery Method Room Air MDM - Extremity (Nontraumatic) Differential Diagnosis Differential diagnosis: Likely cellulitis, lower extremity edema and deep vein thrombosis of lower extremity Imaging Data US - DVT: Radiologist's Impression: PROCEDURE: US PERIP VENOUS LOW EXTREM RT INDICATIONS: EDEMA TECHNIQUE: Real-time imaging, as well as color and pulse Doppler interrogation, were performed of the lower extremity deep veins from the inguinal ligament to the popliteal fossa, with documentation of the visualized calf veins. COMPARISON: [facility], , [facility] VENOUS LOW EXTREM RT, 05/28/2024, 0:17. FINDINGS: The common femoral, femoral, popliteal, and the visualized calf veins are normally compressible, and free of intraluminal thrombus. Color and pulse Doppler demonstrate normal phasic intraluminal flow. There is normal augmentation re sponse to distal compression maneuver. IMPRESSION: No evidence of DVT in visualized right lower extremity veins. Dictated by: Vik French M.D. on 07/09/2024 at 21:58 Approved by: Vik French M.D. on 07/09/2024 at 21:59 [facility] Narrative Medical decision making narrative: Bilateral lower extremity edema, right greater than left. Patient states his swelling worse after a long day on his feet moving his positions. He states that he has been treated recurrently for cellulitis, however on my exam today there was no evidence of cellulitis. Patient's description of his swelling seems to have significant dependent component, would not be surprised if patient has general vascular insufficiency as well. Patient was not wear compression stockings or routinely elevate his legs. Ultrasound negative for DVT. Patient was given compression wraps with Mel[place] bandages in the emergency department. He was advised to wear compression stockings if he is active and whenever he is at rest he should elevate his legs. Ongoing PCP follow up advised. Discharge Plan Departure Patient Disposition: Home Clinical Impression: Swelling of right lower extremity Instructions: DI for Peripheral Edema -- Bilateral Activity Restrictions/Additional Instructions: Any time you are up and around you need to wear either compression socks or an elastic bandage for your legs. Follow up with your primary care doctor for your continued lower extremity swelling Prescriptions: No Action cephalexin 500 mg capsule 500 mg PO QID Qty: 28 0RF nicotine 21-14-7 mg/24 hr patch, TD daily, sequential See Rx Instructions transdermal .COMPLEX Qty: 56 0RF Rx Instructions: apply 1-21 mg NICOTINE PATCH daily for 28 days; follow with 1-14 mg PATCH daily for 14 days, then 1-7mg PATCH daily for 14 days transdermal Referrals: Citlaly Castellanos PA-C [Primary Care Provider] - Stand Alone Forms: Patient Portal/API/Survey
== END 2024-07-10 01:19 | disposition home or self-care (01) ==
PROVIDERS: Emergency Provider Emergency Medicine; PCP Physician Assistant Medical
DX: M79.89 Other specified soft tissue disorders (principal)
CPT/HCPCS: 93971; 99282; 99283

== ENCOUNTER → 2024-11-04 13:29 | Outpatient (CLI) | payer OTHER, SELFPAY ==
[2024-05-28 02:00] VITALS: BMI 27.4
[2024-11-04 19:34] LABS: HEMOLYSIS < 15 (0-50); Iron 54 ug/dL (49-181)
[2024-11-04 19:40] LABS: Alanine Aminotransferase 23 IU/L (<50); Albumin Globulin Ratio 1.4 (1.0-2.8); Alkaline Phosphatase 77 U/L (38-126); Aspartate Aminotransferase 28 IU/L (17-59); Bilirubin Total 0.4 mg/dL (0.2-1.3); Globulin 2.9 g/dL (1.7-4.1); HEMOLYSIS < 15 (0-50); Total Protein 6.9 g/dL (6.3-8.2)
[2024-11-04 19:47] LABS: Hemoglobin A1C% w Est Avg Glu 5.3 % (4.0-6.0)
[2024-11-04 19:49] LABS: Percent Iron Saturation 19 % (20-50); Total Iron Binding Capacity 283 ug/dL (261-462)
[2024-11-04 19:58] LABS: Transferrin 215 mg/dL (206-381)
[2024-11-04 20:11] LABS: Ferritin 31 ng/mL (18-464)
[2024-11-04 20:57] LABS: Vitamin B12 330 pg/mL (239-931)
[2024-11-06 04:36] LABS: Ceruloplasmin 24.8 mg/dL (16.0-31.0)
[2024-11-08 03:08] LABS: ANA Screen, IFA Negative (.)
[2024-11-08 15:10] LABS: HBsAg Screen Negative (Negative); Hepatitis A Antibody IgM Negative (Negative); Hepatitis B Core Antibody IgM Negative (Negative); Hepatitis C Antibody Reactive (Non Reactive); Hepatitis C Quant HCV Not Detected IU/mL (.)
== END ==
PROVIDERS: Physician Assistant; PCP Physician Assistant Medical; Visit Provider Family Medicine
DX: M79.89 Other specified soft tissue disorders (principal); D64.9 Anemia, unspecified; R74.01 Elevation of levels of liver transaminase levels; R73.9 Hyperglycemia, unspecified; Z78.9 Other specified health status; Z86.19 Personal history of other infectious and parasitic diseases
CPT/HCPCS: 80074; 80076; 82390; 82525; 82607; 82728; 82746; 83036; 83540; 83550; 86038; 87522

== ENCOUNTER 2025-03-25 18:57 | Emergency (ER) | payer OTHER, SELFPAY ==
[2024-05-28 02:00] VITALS: BMI 27.4
[2025-03-25 19:32] VITALS: BP 139/75; PULSE 102; RESP 16; TEMP 36.6; O2SAT 99; BMI 28.6
[2025-03-25 22:00] VITALS: BP 124/78; PULSE 102; RESP 18; O2SAT 97
[2025-03-25 22:30] VITALS: PULSE 96; O2SAT 96
--- NOTE | 2025-03-25 22:48 | ED_ITS ---
HPI - Recheck/Abnormal Lab/Rx <Kevin Santiago MD - Last Filed: 03/25/25 22:55> General Chief Complaint: Recheck/Abnormal Lab/Rx Stated Complaint: R side tooth infection pc ref Time Seen by Provider: 03/25/25 22:19 Source: patient Mode of arrival: Family Vehicle History of Present Illness HPI narrative: 59-year-old male patient with a history of TBI, polysubstance abuse (tobacco and methamphetamine) and lower extremity edema who complains of right upper dental pain/infection with facial swelling worsening over 3 days. He was seen by primary care and [facility] 2 days ago was started on Augmentin. He was seen by dentist today and was told to go back to the clinic and get a Patten pass to be seen in the emergency room so he comes to the emergency room now from [facility]. No fever or chills. Related Data Previous Rx's ?Medication ?Instructions ?Recorded nicotine See Rx Instructions transder mal 06/12/24 21mg/24hr-14mg/24hr-7mg/24hr daily .COMPLEX #56 patche s transderm patches,sequentl nicotine 21 mg/24 hr daily 1 patch transdermal Q24H ni cotine 10/28/24 transdermal patch cessation #28 ea amoxicillin 875 mg-potassium 1 tab PO BID 10 days #20 tabs 03/24/25 clavulanate 125 mg tablet Allergies Allergy/AdvReac Type Severity Reaction Status Date / Time No Known Drug Allergies Allergy Verified 03/25/25 19:32 Review of Systems <Alonzo Camarena DO - Last Filed: 03/25/25 23:11> Review of Systems ROS Unobtainable: All systems reviewed & are unremarkable except as noted in HPI and below Patient History <Kevin Santiago MD - Last Filed: 03/25/25 22:55> tobacco type: cigarettes alcohol intake frequency: holidays/special occasions only Exam <Kevin Santiago MD - Last Filed: 03/25/25 22:55> Initial Vital Signs Initial Vital Signs: Vital Signs Temperature 97.9 F 03/25/25 19:32 Pulse Rate 102 H 03/25/25 19:32 Respiratory Rate 16 03/25/25 19:32 Blood Pressure 139/75 03/25/25 19:32 Pulse Oximetry 99 03/25/25 19:32 Oxygen Delivery Method Room Air 03/25/25 19:32 <Alonzo Camarena DO - Last Filed: 03/25/25 23:11> Narrative Exam Narrative: GENERAL: [59] year old patient appears stated age. Well-developed patient, in mild distress. HEAD: Atraumatic. Normocephalic. EYES: Pupils equal round and reactive. Extraocular motions intact. No scleral icterus. No injection or drainage. ENT: Nose without bleeding, purulent drainage. Throat without erythema, tonsillar hypertrophy or exudate. Airway patent. NECK: Trachea midline. Non tender CARDIOVASCULAR: Regular rate and rhythm without murmurs, gallops, or rubs. RESPIRATORY: Clear to auscultation. Breath sounds equal bilaterally. No wheezes, rales, or rhonchi. GASTROINTESTINAL: Abdomen soft, non-tender, nondistended. EXTREMITIES: No edema or joint tenderness. BACK: Nontender without deformity or crepitance. No flank tenderness. NEURO: AOx3. SKIN: No rash or erythema of visible areas Initial Vital Signs Initial Vital Signs: Vital Signs Temperature 97.9 F 03/25/25 19:32 Pulse Rate 102 H 03/25/25 19:32 Respiratory Rate 16 03/25/25 19:32 Blood Pressure 139/75 03/25/25 19:32 Pulse Oximetry 99 03/25/25 19:32 Oxygen Delivery Method Room Air 03/25/25 19:32 Course <Kevin Santiago MD - Last Filed: 03/25/25 22:55> Orders Ordered: ED Orders 03/25/25 22:55 CBC Auto Diff [Complete Blood Count AUTO DIFF] Stat CMP [Comprehensive Metabolic Panel] Stat 03/25/25 23:09 CT facial bones w con Stat Sodium Chloride (Normal Saline 0.9%) 1,000 mls @ 1,000 mls/hr IV BOLUS ONE Stop: 03/25/25 23:54 Discontinued Medications Ketorolac Tromethamine (Ketorolac 30 Mg/Ml Vial) 30 mg IV NOW ONE Stop: 03/25/25 22:56 Morphine Sulfate (Morphine 4 Mg/Ml Inj) 4 mg IV NOW ONE Stop: 03/25/25 22:56 Vital Signs Vital signs: Vital Signs - 8 hr 03/25/25 19:32 03/25/25 22:00 Temperature 97.9 F Pulse Rate 102 H 102 H Respiratory Rate 16 18 Blood Pressure 139/75 124/78 Pulse Oximetry 99 97 Oxygen Delivery Method Room Air Room Air <Alonzo Camarena, DO - Last Filed: 03/25/25 23:11> Orders Ordered: ED Orders 03/25/25 22:55 CBC Auto Diff [Complete Blood Count AUTO DIFF] Stat CMP [Comprehensive Metabolic Panel] Stat 03/25/25 23:09 CT facial bones w con Stat Sodium Chloride (Normal Saline 0.9%) 1,000 mls @ 1,000 mls/hr IV BOLUS ONE Stop: 03/25/25 23:54 Discontinued Medications Ketorolac Tromethamine (Ketorolac 30 Mg/Ml Vial) 30 mg IV NOW ONE Stop: 03/25/25 22:56 Morphine Sulfate (Morphine 4 Mg/Ml Inj) 4 mg IV NOW ONE Stop: 03/25/25 22:56 Vital Signs Vital signs: Vital Signs - 8 hr 03/25/25 19:32 03/25/25 22:00 Temperature 97.9 F Pulse Rate 102 H 102 H Respiratory Rate 16 18 Blood Pressure 139/75 124/78 Pulse Oximetry 99 97 Oxygen Delivery Method Room Air Room Air Discharge Plan Departure Prescriptions: No Action nicotine 21 mg/24 hr patch 24 hour 1 patch transdermal Q24H Qty: 28 6RF amoxicillin-pot clavulanate 875-125 mg tablet 1 tab PO BID 10 Days Qty: 20 0RF Rx Instructions: Take with food and water. nicotine 21-14-7 mg/24 hr patch, TD daily, sequential See Rx Instructions transdermal .COMPLEX Qty: 56 0RF Rx Instructions: apply 1-21 mg NICOTINE PATCH daily for 28 days; follow with 1-14 mg PATCH daily for 14 days, then 1-7mg PATCH daily for 14 days transdermal Referrals: Citlaly Middleton MD [Primary Care Provider, Family Practice]
[2025-03-25 23:00] VITALS: PULSE 95; O2SAT 97
--- NOTE | 2025-03-25 23:09 | DI.CT.S_ITS ---
PROCEDURE: CT FACIAL BONES W CON INDICATIONS: R sided facial swelling TECHNIQUE: After the administration of intravenous contrast, 2.5 mm axial sections acquired from the mid-neck to the frontal sinuses, with coronal and sagittal reformats. For radiation dose reduction, the following was used: automated exposure control, adjustment of mA and/or kV according to patient size. COMPARISON: None. FINDINGS: Image quality: Diagnostic. Soft tissues: There is asymmetric swelling of the pre maxillary soft tissues without organized or drainable fluid collection. Focal right pre maxillary fluid collection at the anterior aspect of the maxilla (4/50). Vascular: Visualized vascular structures appear patent throughout. Bony vascular foramina and canals appear normal. Bones: Facial bones appear intact, without fractures, erosions, or destruction. Visualized portions of the skull base and auditory canals also appear normal. Sinuses: Moderate circumferential mucosal thickening of the right maxillary sinus. Remainder of sinuses are clear without fluid levels, mucosal thickening, or mucoceles. Mastoid air cells are aerated. IMPRESSION: Moderate circumferential mucosal thickening of the right maxillary sinus concerning for sinusitis with pre maxillary fluid collection measuring 0.7 x 1.8 cm. Asymmetric superficial soft tissue swelling of the right pre maxillary tissues is concerning for cellulitis. Approved by: Chanel Gaona M.D.,Ph.D. on 03/26/2025 at 1:11
[2025-03-25] MEDS: KETOROLAC 30 MG/ML VIAL IV (23:31)
[2025-03-25] MEDS: MORPHINE 4 MG/ML INJ IV (23:31)
[2025-03-25] MEDS: SODIUM CHLORIDE 0.9% 1,000 ML 1000 ML IV (23:32)
[2025-03-25 23:40] LABS: Add Manual Diff / Slide Review NO; Hematocrit 39.3 % (41-53); Hemoglobin 13.6 g/dL (13.5-17.5); Lymphocytes Absolute Auto 1500 /uL (1100-4500); Mean Corpuscular HGB Conc 34.6 % (30-36); Mean Corpuscular Hemoglobin 29.3 PG (26-34); Mean Corpuscular Volume 84.8 fL (80-100); Platelet Count 226 X10^3/uL (150-400)
--- NOTE | 2025-03-25 23:45 | ED.RECABL ---
HPI - Recheck/Abnormal Lab/Rx General Chief Complaint: Recheck/Abnormal Lab/Rx Stated Complaint: R side tooth infection pc ref Time Seen by Provider: 03/25/25 22:19 Source: patient Mode of arrival: Family Vehicle History of Present Illness HPI narrative: 59-year-old gentleman the history of TBI, substance abuse, presents with right-sided facial swelling after his tooth broke off over the weekend was seen by the dentist started on Augmentin re-evaluated today again by the dentist who was concerned that the patient may need further intervention as his face has become more swollen at this time. He is able to drink, swallow, eat, but in pain but not dry heaving or spitting up blood or saliva. He denies fever, chills, trauma to the area, headache, dizziness, vision changes. Other than what is stated 14 point review of system is negative. Related Data Previous Rx's ?Medication ?Instructions ?Recorded nicotine See Rx Instructions transdermal 06/12/24 21mg/24hr-14mg/24hr-7mg/24hr daily .COMPLEX #56 patches transderm patches,sequentl nicotine 21 mg/24 hr daily 1 patch transdermal Q24H nicotine 10/28/24 transdermal patch cessation #28 ea amoxicillin 875 mg-potassium 1 tab PO BID 10 days #20 tabs 03/24/25 clavulanate 125 mg tablet levofloxacin 750 mg tablet 750 mg PO DAILY #14 tabs 03/26/25 Allergies Allergy/AdvReac Type Severity Reaction Status Date / Time No Known Drug Allergies Allergy Verified 03/25/25 19:32 Review of Systems Review of Systems ROS Unobtainable: All systems reviewed & are unremarkable except as noted in HPI and below Patient History tobacco type: cigarettes alcohol intake frequency: holidays/special occasions only Exam Narrative Exam Narrative: GENERAL: [59] year old patient appears stated age. Well-developed patient, in mild distress. HEAD: Atraumatic. Normocephalic. EYES: Pupils equal round and reactive. Extraocular motions intact. No scleral icterus. No injection or drainage. ENT: Nose without bleeding, purulent drainage. Throat without erythema, tonsillar hypertrophy or exudate. Airway patent. Right-sided facial swelling with redness and warmth to maxillary region and also dental caries and cracked tooth R tooth#4 NECK: Trachea midline. Non tender CARDIOVASCULAR: Regular rate and rhythm without murmurs, gallops, or rubs. RESPIRATORY: Clear to auscultation. Breath sounds equal bilaterally. No wheezes, rales, or rhonchi. EXTREMITIES: No edema or joint tenderness. BACK: Nontender without deformity or crepitance. No flank tenderness. NEURO: AOx3. SKIN: No rash or erythema of visible areas Initial Vital Signs Initial Vital Signs: Vital Signs Temperature 97.9 F 03/25/25 19:32 Pulse Rate 102 H 03/25/25 19:32 Respiratory Rate 16 03/25/25 19:32 Blood Pressure 139/75 03/25/25 19:32 Pulse Oximetry 99 03/25/25 19:32 Oxygen Delivery Method Room Air 03/25/25 19:32 Course Orders Ordered: ED Orders 03/25/25 23:09 CT facial bones w con Stat 03/25/25 23:30 CBC Auto Diff [Complete Blood Count AUTO DIFF] Stat CMP [Comprehensive Metabolic Panel] Stat Discontinued Medications Sodium Chloride (Normal Saline 0.9%) 1,000 mls @ 1,000 mls/hr IV BOLUS ONE Stop: 03/25/25 23:54 Last Admin: 03/25/25 23:32 Dose: 1,000 mls/hr Documented By: LEILA Ceftriaxone Sodium 1,000 mg/ (Sodium Chloride) 100 mls @ 200 mls/hr IV NOW ONE Stop: 03/25/25 23:10 Last Infusion: 03/26/25 00:48 Dose: Infused Documented By: Admin: 03/25/25 23:41 Dose: 200 mls/hr Documented By: LEILA Lactated Ringer's (Lactated Ringers) 1,000 mls @ 1,000 mls/hr IV BOLUS ONE Stop: 03/26/25 00:08 Ketorolac Tromethamine (Ketorolac 30 Mg/Ml Vial) 30 mg IV NOW ONE Stop: 03/25/25 22:56 Last Admin: 03/25/25 23:31 Dose: 30 mg Documented By: LEILA Morphine Sulfate (Morphine 4 Mg/Ml Inj) 4 mg IV NOW ONE Stop: 03/25/25 22:56 Last Admin: 03/25/25 23:31 Dose: 4 mg Documented By: LEILA Vital Signs Vital signs: Vital Signs - 8 hr 03/25/25 19:32 03/25/25 22:00 03/25/25 22:00 Temperature 97.9 F Pulse Rate 102 H 102 H Respiratory Rate 16 18 Blood Pressure 139/75 124/78 124/78 Pulse Oximetry 99 97 Oxygen Delivery Method Room Air Room Air 03/25/25 22:30 03/25/25 23:00 03/26/25 00:35 Temperature Pulse Rate 96 H 95 H Respiratory Rate Blood Pressure 146/93 H Pulse Oximetry 96 97 Oxygen Delivery Method 03/26/25 00:35 Temperature Pulse Rate 88 Respiratory Rate Blood Pressure Pulse Oximetry 98 Oxygen Delivery Method MDM - Recheck/Abnormal Lab/Rx Lab Data 03/25/25 23:30 03/25/25 23:30 Labs: Lab Results 03/25/25 Range/Units 23:30 WBC 8.2 (4.5-11.0) X10^3/uL RBC 4.64 (4.5-5.9) X10^6/uL Hgb 13.6 (13.5-17.5) g/dL Hct 39.3 L (41-53) % MCV 84.8 (80-100) fL MCH 29.3 (26-34) PG MCHC 34.6 (30-36) % RDW 13.4 (11.6-14.8) % Plt Count 226 (150-400) X10^3/uL Neut % (Auto) 66.1 (50-75) % Lymph % (Auto) 18.6 L (25-40) % [place] % (Auto) 13.4 (3-14) % Eos % (Auto) 1.1 L (2-4) % Baso % (Auto) 0.8 (0-2) % Neut # (Auto) 5400 (9538-5962) /uL Lymph # (Auto) 1500 (8316-7275) /uL [place] # (Auto) 1100 H (0-900) /uL Eos # (Auto) 100 (0-450) /uL Baso # (Auto) 100 (0-100) /uL Sodium 136 L (137-145) mmol/L Potassium 4.4 (3.4-5.1) mmol/L Chloride 102 (98-107) mmol/L Carbon Dioxide 27 (22-32) mmol/L BUN 18 (9-20) mg/dL Creatinine 0.91 (0.66-1.25) mg/dL Estimated GFR > 60 (>60) mL/min BUN/Creatinine Ratio 19.8 (6-22) Glucose 116 H (70-99) mg/dL Calcium 9.1 (8.4-10.2) mg/dL Total Bilirubin 0.6 (0.2-1.3) mg/dL AST 21 (17-59) IU/L ALT 19 (<50) IU/L Alkaline Phosphatase 66 (38-126) U/L Total Protein 7.9 (6.3-8.2) g/dL Albumin 4.3 (3.5-5.0) g/dL Globulin 3.6 (1.7-4.1) g/dL Albumin/Globulin Ratio 1.2 (1.0-2.8) Imaging Data Extremity x-ray #1: Radiologist's Impression: [address] [address] [address] Scan Report Signed Patient: Norm Cole MR#: [id number] : 1965 Acct:[id number] Age/Sex: 59 / M Date of Service: 03/25/25 Loc: ED Accession Number: [id number] Procedure: CT facial bones w con Ordering Provider: Alonzo Camarena D.O. PROCEDURE: CT FACIAL BONES W CON INDICATIONS: R sided facial swelling TECHNIQUE: After the administration of intravenous contrast, 2.5 mm axial sections acquired from the mid-neck to the frontal sinuses, with coronal and sagittal reformats. For radiation dose reduction, the following was used: automated exposure control, adjustment of mA and/or kV according to patient size. COMPARISON: None. FINDINGS: Image quality: Diagnostic. Soft tissues: There is asymmetric swelling of the pre maxillary soft tissues without organized or drainable fluid collection. Focal right pre maxillary fluid collection at the anterior aspect of the maxilla (4/50). Vascular: Visualized vascular structures appear patent throughout. Bony vascular foramina and canals appear normal. Bones: Facial bones appear intact, without fractures, erosions, or destruction. Visualized portions of the skull base and auditory canals also appear normal. Sinuses: Moderate circumferential mucosal thickening of the right maxillary sinus. Remainder of sinuses are clear without fluid levels, mucosal thickening, or mucoceles. Mastoid air cells are aerated. IMPRESSION: Moderate circumferential mucosal thickening of the right maxillary sinus concerning for sinusitis with pre maxillary fluid collection measuring 0.7 x 1.8 cm. Asymmetric superficial soft tissue swelling of the right pre maxillary tissues is concerning for cellulitis. MDM Narrative Medical decision making narrative: Vital signs, nurse triage note, medication list, previous ER visits, and all imaging studies reviewed. WBC 8.2 hemoglobin 13.6 hematocrit 39.3 platelet 226 sodium 136 potassium 4.4 chloride 102 CO2 27 BUN 18 creatinine 0.91 glucose 116. Patient given fluids, Toradol, morphine, Rocephin. Facial CT with contrast showed moderate circumferential mucosal thickening of the right maxillary sinus concerning for sinusitis with pre maxillary fluid collection measuring 0.7 x 1.8 cm. Asymmetrical superficial soft tissue swelling of the right pre maxillary tissue is concerning for cellulitis. Differential diagnosis includes cellulitis, dental abscess, sinusitis. Will DC home on Levaquin and to stop augmentin and follow up with PCP in 1-2 weeks if no improvement in symptoms. Discharge Plan Departure Patient Disposition: Home Clinical Impression: Acute bacterial sinusitis, Cellulitis of face Activity Restrictions/Additional Instructions: Return with new or worsening symptoms. Stop Augmentin and start taking Levaquin as prescribed. Keep hydrated drink water daily. Follow up PCP and/or dentist in 1-2 weeks if no improvement in symptoms. Prescriptions: New levofloxacin 750 mg tablet 750 mg PO DAILY Qty: 14 0RF No Action nicotine 21 mg/24 hr patch 24 hour 1 patch transdermal Q24H Qty: 28 6RF amoxicillin-pot clavulanate 875-125 mg tablet 1 tab PO BID 10 Days Qty: 20 0RF Rx Instructions: Take with food and water. nicotine 21-14-7 mg/24 hr patch, TD daily, sequential See Rx Instructions transdermal .COMPLEX Qty: 56 0RF Rx Instructions: apply 1-21 mg NICOTINE PATCH daily for 28 days; follow with 1-14 mg PATCH daily for 14 days, then 1-7mg PATCH daily for 14 days transdermal Referrals: Citlaly Middleton MD [Primary Care Provider, Family Practice] Stand Alone Forms: Patient Portal/API
[2025-03-25 23:53] LABS: Alanine Aminotransferase 19 IU/L (<50); Albumin 4.3 g/dL (3.5-5.0); Albumin Globulin Ratio 1.2 (1.0-2.8); Alkaline Phosphatase 66 U/L (38-126); Blood Urea Nitrogen 18 mg/dL (9-20); Calcium 9.1 mg/dL (8.4-10.2); Carbon Dioxide 27 mmol/L (22-32); Chloride 102 mmol/L (98-107); Estimated Glomerular Filt Rate > 60 mL/min (>60); Globulin 3.6 g/dL (1.7-4.1); Glucose 116 mg/dL (70-99); HEMOLYSIS < 15 (0-50); Potassium 4.4 mmol/L (3.4-5.1); Sodium 136 mmol/L (137-145); Total Protein 7.9 g/dL (6.3-8.2)
[2025-03-26 00:35] VITALS: BP 146/93; PULSE 88; O2SAT 98
[2025-03-26] MEDS: PANTOPRAZOLE 40 MG VIAL IV (01:14)
[2025-03-26 01:44] VITALS: BP 139/84; PULSE 84; RESP 14; TEMP 36.8; O2SAT 97
== END 2025-03-26 01:45 | disposition home or self-care (01) ==
PROVIDERS: Emergency Medicine; Emergency Provider Family Medicine; PCP Family Medicine
DX: J01.90 Acute sinusitis, unspecified (principal); B96.89 Other specified bacterial agents as the cause of diseases classified elsewhere; L03.211 Cellulitis of face
CPT/HCPCS: 36415; 70487; 80053; 85025; 96365; 96375; 99284; J0696; J1885; J2270; J2470; Q9967

== ENCOUNTER 2025-03-27 23:12 | Emergency (ER) | payer OTHER, SELFPAY ==
[2024-05-28 02:00] VITALS: BMI 27.4
[2025-03-27 23:25] VITALS: BP 159/97; PULSE 110; RESP 16; TEMP 37.6; O2SAT 94; BMI 28.6
--- NOTE | 2025-03-28 00:52 | ED.DENTAL ---
HPI - Dental/Oral General Chief complaint: Dental/Oral Stated complaint: face Time Seen by Provider: 03/27/25 23:44 Source: patient Mode of arrival: Ambulatory History of Present Illness HPI Narrative: 59-year-old gentleman seen by the dentist originally started on Augmentin for dental abscess sent here for further evaluation switch to Levaquin. After being switched to Levaquin swelling did go down temporarily but now painful and swollen again. A referral was placed to Dr. Mattie Pittman oral maxillofacial surgeon here to have follow up with the patient but patient has yet to follow up with him as patient was arranging for financial deposit to be seen. However today states swelling has worsened it feels hard as a rock. Patient is still able to eat and drink but still in significant pain. Location: Tooth # (4) Related Data Previous Rx's ?Medication ?Instructions ?Recorded nicotine See Rx Instructions transdermal 06/12/24 21mg/24hr-14mg/24hr-7mg/24hr daily .COMPLEX #56 patches transderm patches,sequentl nicotine 21 mg/24 hr daily 1 patch transdermal Q24H nicotine 10/28/24 transdermal patch cessation #28 ea amoxicillin 875 mg-potassium 1 tab PO BID 10 days #20 tabs 03/24/25 clavulanate 125 mg tablet levofloxacin 750 mg tablet 750 mg PO DAILY #14 tabs 03/26/25 Allergies Allergy/AdvReac Type Severity Reaction Status Date / Time No Known Drug Allergies Allergy Verified 03/27/25 23:25 Review of Systems Review of Systems ROS Unobtainable: All systems reviewed & are unremarkable except as noted in HPI and below Patient History Social History Smoking Status: Current every day smoker Smoking Status: Current every day smoker tobacco type: cigarettes alcohol intake frequency: holidays/special occasions only Exam Narrative Exam Narrative: GENERAL: [59] year old patient appears stated age. Well-developed patient, in mild distress. HEAD: Atraumatic. Normocephalic. EYES: Pupils equal round and reactive. Extraocular motions intact. No scleral icterus. No injection or drainage. ENT: Nose without bleeding, purulent drainage. Throat without erythema, tonsillar hypertrophy or exudate. Airway patent. R facial swelling with dental caries NECK: Trachea midline. Non tender EXTREMITIES: No edema or joint tenderness. BACK: Nontender without deformity or crepitance. No flank tenderness. NEURO: AOx3. SKIN: No rash or erythema of visible areas Initial Vital Signs Initial Vital Signs: Vital Signs Temperature 99.6 F 03/27/25 23:25 Pulse Rate 110 H 03/27/25 23:25 Respiratory Rate 16 03/27/25 23:25 Blood Pressure 159/97 H 03/27/25 23:25 Pulse Oximetry 94 03/27/25 23:25 Oxygen Delivery Method Room Air 03/27/25 23:25 Course Orders Ordered: ED Orders 03/28/25 01:15 CBC Auto Diff [Complete Blood Count AUTO DIFF] Stat CMP [Comprehensive Metabolic Panel] Stat Discontinued Medications Lactated Ringer's (Lactated Ringers) 1,000 mls @ 1,000 mls/hr IV BOLUS ONE Stop: 03/28/25 01:54 Last Infusion: 03/28/25 02:21 Dose: Infused Documented By: Admin: 03/28/25 01:06 Dose: 1,000 mls/hr Documented By: JONAH Clindamycin Phosphate (Cleocin) 600 mg in 50 mls @ 50 mls/hr IV NOW ONE Stop: 03/28/25 01:55 Last Infusion: 03/28/25 02:21 Dose: Infused Documented By: Admin: 03/28/25 01:06 Dose: 50 mls/hr Documented By: JONAH Ketorolac Tromethamine (Ketorolac 30 Mg/Ml Vial) 15 mg IV NOW ONE Stop: 03/28/25 00:57 Last Admin: 03/28/25 01:05 Dose: 15 mg Documented By: JONAH Vital Signs Vital signs: Vital Signs - 8 hr 03/27/25 23:25 03/28/25 06:46 Temperature 99.6 F Pulse Rate 110 H 69 Respiratory Rate 16 16 Blood Pressure 159/97 H 150/93 H Pulse Oximetry 94 98 Oxygen Delivery Method Room Air MDM - Dental/Oral Lab Data 03/28/25 01:15 03/28/25 01:15 Labs: Lab Results 03/28/25 Range/Units 01:15 WBC 8.5 (4.5-11.0) X10^3/uL RBC 4.59 (4.5-5.9) X10^6/uL Hgb 13.3 L (13.5-17.5) g/dL Hct 38.6 L (41-53) % MCV 84.1 (80-100) fL MCH 29.0 (26-34) PG MCHC 34.4 (30-36) % RDW 13.3 (11.6-14.8) % Plt Count 257 (150-400) X10^3/uL Neut % (Auto) 69.2 (50-75) % Lymph % (Auto) 15.6 L (25-40) % [place] % (Auto) 13.6 (3-14) % Eos % (Auto) 0.9 L (2-4) % Baso % (Auto) 0.7 (0-2) % Neut # (Auto) 5900 (2848-9386) /uL Lymph # (Auto) 1300 (0618-3700) /uL [place] # (Auto) 1200 H (0-900) /uL Eos # (Auto) 100 (0-450) /uL Baso # (Auto) 100 (0-100) /uL Sodium 135 L (137-145) mmol/L Potassium 4.4 (3.4-5.1) mmol/L Chloride 101 (98-107) mmol/L Carbon Dioxide 24 (22-32) mmol/L BUN 18 (9-20) mg/dL Creatinine 0.96 (0.66-1.25) mg/dL Estimated GFR > 60 (>60) mL/min BUN/Creatinine Ratio 18.8 (6-22) Glucose 115 H (70-99) mg/dL Calcium 9.4 (8.4-10.2) mg/dL Total Bilirubin 0.6 (0.2-1.3) mg/dL AST 28 (17-59) IU/L ALT 20 (<50) IU/L Alkaline Phosphatase 67 (38-126) U/L Total Protein 8.0 (6.3-8.2) g/dL Albumin 4.3 (3.5-5.0) g/dL Globulin 3.7 (1.7-4.1) g/dL Albumin/Globulin Ratio 1.2 (1.0-2.8) MDM Narrative Medical decision making narrative: Vital signs, nurse triage note, medication list, previous ER visits, and all imaging studies reviewed. WBC 8.5 hemoglobin 13.3 platelet 257 sodium 135 potassium 4.4 BUN 18 creatinine 0.[address] from 03/25/2025 showed moderate circumferential mucosal thickening of the right maxillary sinus concerning for sinusitis with pre maxillary fluid collection measuring 0.7 x 1.8 cm. Asymmetric superficial soft tissue swelling of the right premaxillary tissues is concerning for cellulitis. Patient given fluids Toradol and clindamycin here. He still has Levaquin prescription for which he is taking as directed. I will contact Dr. Shivam Pittman in AM to see if patient can be seen later today in clinic. Discharge Plan Departure Patient Disposition: Home Clinical Impression: Dental disorder Instructions: DI for Dental Pain Activity Restrictions/Additional Instructions: Return with new or worsening symptoms. Please follow up directly after discharge to Dr. Shivam Pittman office which is located [address] [place] [address] office tel # [phone]. Prescriptions: No Action levofloxacin 750 mg tablet 750 mg PO DAILY Qty: 14 0RF nicotine 21 mg/24 hr patch 24 hour 1 patch transdermal Q24H Qty: 28 6RF amoxicillin-pot clavulanate 875-125 mg tablet 1 tab PO BID 10 Days Qty: 20 0RF Rx Instructions: Take with food and water. nicotine 21-14-7 mg/24 hr patch, TD daily, sequential See Rx Instructions transdermal .COMPLEX Qty: 56 0RF Rx Instructions: apply 1-21 mg NICOTINE PATCH daily for 28 days; follow with 1-14 mg PATCH daily for 14 days, then 1-7mg PATCH daily for 14 days transdermal Referrals: Citlaly Middleton MD [Primary Care Provider, Family Practice] Stand Alone Forms: Patient Portal/API
[2025-03-28] MEDS: KETOROLAC 30 MG/ML VIAL 15 MG IV (01:05)
[2025-03-28] MEDS: CLINDAMYCIN 600 MG/50 ML PIGGYBACK 50 MG IV (01:06)
[2025-03-28] MEDS: LACTATED RINGERS 1,000 ML 1000 ML IV (01:06)
[2025-03-28 01:35] LABS: Add Manual Diff / Slide Review NO; Hematocrit 38.6 % (41-53); Hemoglobin 13.3 g/dL (13.5-17.5); Lymphocytes Absolute Auto 1300 /uL (1100-4500); Mean Corpuscular HGB Conc 34.4 % (30-36); Mean Corpuscular Hemoglobin 29.0 PG (26-34); Mean Corpuscular Volume 84.1 fL (80-100); Platelet Count 257 X10^3/uL (150-400)
[2025-03-28 01:49] LABS: Alanine Aminotransferase 20 IU/L (<50); Albumin 4.3 g/dL (3.5-5.0); Albumin Globulin Ratio 1.2 (1.0-2.8); Alkaline Phosphatase 67 U/L (38-126); Blood Urea Nitrogen 18 mg/dL (9-20); Calcium 9.4 mg/dL (8.4-10.2); Carbon Dioxide 24 mmol/L (22-32); Chloride 101 mmol/L (98-107); Estimated Glomerular Filt Rate > 60 mL/min (>60); Globulin 3.7 g/dL (1.7-4.1); Glucose 115 mg/dL (70-99); HEMOLYSIS 18 (0-50); Potassium 4.4 mmol/L (3.4-5.1); Sodium 135 mmol/L (137-145); Total Protein 8.0 g/dL (6.3-8.2)
--- NOTE | 2025-03-28 02:30 | PC.NURSE ---
pt to stay in ED ntil the am to be able to contact oral surgeon, pt allowed to take his service animal out prior to settling down
[2025-03-28 06:46] VITALS: BP 150/93; PULSE 69; PULSE 73; RESP 16; O2SAT 98
[2025-03-28 06:59] VITALS: PULSE 69; O2SAT 98
[2025-03-28 07:00] VITALS: BP 142/88
[2025-03-28 07:01] VITALS: PULSE 69; O2SAT 97
[2025-03-28 07:30] VITALS: BP 135/82; PULSE 78; O2SAT 98
== END 2025-03-28 07:52 | disposition home or self-care (01) ==
PROVIDERS: Emergency Provider Family Medicine; PCP Family Medicine
DX: K08.89 Other specified disorders of teeth and supporting structures (principal)
CPT/HCPCS: 36415; 80053; 85025; 96365; 96375; 99284; J1885

== ENCOUNTER 2025-06-25 06:48 | Emergency (ER) | payer OTHER, SELFPAY ==
[2024-05-28 02:00] VITALS: BMI 27.4
[2025-06-25 06:53] VITALS: PULSE 94; O2SAT 98
[2025-06-25 07:00] VITALS: BP 136/85; BP 158/90; PULSE 93; PULSE 95; RESP 16; TEMP 36.8; O2SAT 98; BMI 26.3
--- NOTE | 2025-06-25 07:09 | ED_ITS ---
HPI - General Adult General Chief complaint: Extremity Problem,Nontraumatic Stated complaint: cellulitis Time Seen by Provider: 06/25/25 06:55 Source: patient, RN notes reviewed and old records reviewed Mode of arrival: Ambulatory Limitations: no limitations History of Present Illness HPI narrative: 60-year-old male history of methamphetamine use patient states he does not inject. Notes that he is crying colonic bilateral lower extremity swelling that is on and off he states no one ever found in exact cause sounds like he has had Luz's workups for this. Notes today he developed a spot in his right buttock that has giving his pain and discomfort and he thinks that has in the infection. He denies fevers or chills. No chest pain or shortness of breath. He did not throw up once. He denies any other GI or urinary symptoms. He states the swelling in his legs usually goes down when he elevates his legs. Has not been persistent. He does not take any daily medications he denies any prior surgeries. He notes no drug allergies. Patient states does smoke tobacco, rare alcohol, uses recreational drugs states most recently methamphetamine a couple hours ago. Related Data Previous Rx's ?Medication ?Instructions ?Recorded nicotine See Rx Instructions transder mal 06/12/24 21mg/24hr-14mg/24hr-7mg/24hr daily .COMPLEX #56 patche s transderm patches,sequentl nicotine 21 mg/24 hr daily 1 patch transdermal Q24H ni cotine 10/28/24 transdermal patch cessation #28 ea levofloxacin 750 mg tablet 750 mg PO DAILY #14 tabs sulfamethoxazole 800 1 tab PO BID #14 tabs mg-trimethoprim 160 mg tablet (Bactrim DS) sulfamethoxazole 800 1 tab PO BID #14 tabs mg-trimethoprim 160 mg tablet (Bactrim DS) Allergies Allergy/AdvReac Type Severity Reaction Status Date / Time No Known Drug Allergies Allergy Verified 06/25/25 07:34 Review of Systems Review of Systems ROS Unobtainable: All systems reviewed & are unremarkable except as noted in HPI and below Patient History Social History Smoking Status: Current every day smoker tobacco type: cigarettes alcohol intake frequency: holidays/special occasions only Exam Narrative Exam Narrative: GENERAL: Alert and oriented x three, male in mild distress HEENT: Head normocephalic, atraumatic, EOMI, pupils reactive, face symmetric, moist mucous membranes NECK: Supple, full range of motion CARDIOVASCULAR: Regular rate and rhythm without murmurs, rubs or gallops. Bilateral lower extremity edema RESPIRATORY: Breath sounds equal bilaterally, no wheezes rales or rhonchi. ABDOMEN: Soft, nontender. Normoactive bowel sounds all 4 quadrants. No guarding or rebound, rigidity, no mass : No CVA tenderness EXTREMITIES: Normal range of motion, bilateral lower extremity edema. Neurovascularly intact NEUROLOGICAL: Cranial nerves II through XII grossly intact. Moving all extremities SKIN: Warm, dry, no petechiae, patient has a erythematous indurated region on the right buttock more medial but not within the gluteal crease. It is slightly tender to touch there was no fluctuance. There was no drainage. Initial Vital Signs Initial Vital Signs: Vital Signs Pulse Rate 94 H 06/25/25 06:53 Pulse Oximetry 98 06/25/25 06:53 Course Orders Ordered: Discontinued Medications Ondansetron HCl (Ondansetron 4 Mg Odt) 4 mg SL NOW ONE Stop: 06/25/25 07:23 Last Admin: 06/25/25 08:49 Dose: 4 mg Documented By: TOMER Trimethoprim/Sulfamethoxazole (Trimeth/Sulfa 160/800 (Ds) Tablet) 1 tab PO NOW ONE Stop: 06/25/25 07:19 Last Admin: 06/25/25 08:49 Dose: 1 tab Documented By: TOMER Vital Signs Vital signs: Vital Signs - 8 hr 06/25/25 06:53 06/25/25 07:00 06/25/25 07:00 Temperature 98.2 F Pulse Rate 94 H 93 H Respiratory Rate 16 Blood Pressure 136/85 158/90 H Pulse Oximetry 98 98 Oxygen Delivery Method Room Air 06/25/25 07:00 06/25/25 07:30 06/25/25 07:30 Temperature Pulse Rate 95 H 86 Respiratory Rate Blood Pressure 142/84 H Pulse Oximetry 98 98 Oxygen Delivery Method Medical Decision Making Lab Data 06/25/25 08:19 06/25/25 08:19 Labs: Lab Results 06/25/25 Range/Units 08:19 WBC 5.8 (4.5-11.0) X10^3/uL RBC 4.37 L (4.5-5.9) X10^6/uL Hgb 12.8 L (13.5-17.5) g/dL Hct 37.4 L (41-53) % MCV 85.5 (80-100) fL MCH 29.2 (26-34) PG MCHC 34.2 (30-36) % RDW 13.6 (11.6-14.8) % Plt Count 227 (150-400) X10^3/uL Neut % (Auto) 55.6 (50-75) % Lymph % (Auto) 28.5 (25-40) % [place] % (Auto) 12.6 (3-14) % Eos % (Auto) 2.6 (2-4) % Baso % (Auto) 0.7 (0-2) % Neut # (Auto) 3200 (1705-4364) /uL Lymph # (Auto) 1600 (2802-7056) /uL [place] # (Auto) 700 (0-900) /uL Eos # (Auto) 200 (0-450) /uL Baso # (Auto) 0 (0-100) /uL Sodium 139 (137-145) mmol/L Potassium 3.9 (3.4-5.1) mmol/L Chloride 106 (98-107) mmol/L Carbon Dioxide 26 (22-32) mmol/L BUN 18 (9-20) mg/dL Creatinine 0.92 (0.66-1.25) mg/dL Estimated GFR > 60 (>60) mL/min BUN/Creatinine Ratio 19.6 (6-22) Glucose 110 H (70-99) mg/dL Calcium 8.8 (8.4-10.2) mg/dL Total Bilirubin 0.3 (0.2-1.3) mg/dL AST 25 (17-59) IU/L ALT 20 (<50) IU/L Alkaline Phosphatase 76 (38-126) U/L NT-Pro-B Natriuret Pep 226 H (<125) pg/mL Total Protein 7.2 (6.3-8.2) g/dL Albumin 3.9 (3.5-5.0) g/dL Globulin 3.3 (1.7-4.1) g/dL Albumin/Globulin Ratio 1.2 (1.0-2.8) MDM Narrative Medical decision making narrative: Labs white count of 5.8 hemoglobin of 12.8, platelets 227., electrolytes BUN and creatinine are normal glucose is 110. BNP is 226. Patient 60-year-old male with cellulitis, notes he has chronic dependent edema. Labs do not show any major changes. Discharge Plan Departure Patient Disposition: Home Clinical Impression: Cellulitis of buttock, right Instructions: DI for Cellulitis -- Adult Activity Restrictions/Additional Instructions: Please follow up if you are not having any improvement in the cellulitis on your right buttock. Take oral antibiotics until prescribed. Prescription sent to [facility] in [place]. Please return for fevers, new swelling, redness any new drainage, rapidly worsening spreading area and persistent vomiting or other new or concerning changes. Prescriptions: New sulfamethoxazole-trimethoprim [Bactrim DS] 800-160 mg tablet 1 tab PO BID Qty: 14 0RF sulfamethoxazole-trimethoprim [Bactrim DS] 800-160 mg tablet 1 tab PO BID Qty: 14 0RF No Action levofloxacin 750 mg tablet 750 mg PO DAILY Qty: 14 0RF nicotine 21 mg/24 hr patch 24 hour 1 patch transdermal Q24H Qty: 28 6RF nicotine 21-14-7 mg/24 hr patch, TD daily, sequential See Rx Instructions transdermal .COMPLEX Qty: 56 0RF Rx Instructions: apply 1-21 mg NICOTINE PATCH daily for 28 days; follow with 1-14 mg PATCH daily for 14 days, then 1-7mg PATCH daily for 14 days transdermal Referrals: Citlaly Middleton MD [Primary Care Provider, Family Practice] Stand Alone Forms: Patient Portal/API
[2025-06-25 07:30] VITALS: BP 142/84; PULSE 86; O2SAT 98
[2025-06-25 08:00] VITALS: BP 162/98; PULSE 100; O2SAT 99
[2025-06-25 08:30] VITALS: BP 145/85; PULSE 86; O2SAT 97
[2025-06-25 08:31] LABS: Add Manual Diff / Slide Review NO; Hematocrit 37.4 % (41-53); Hemoglobin 12.8 g/dL (13.5-17.5); Lymphocytes Absolute Auto 1600 /uL (1100-4500); Mean Corpuscular HGB Conc 34.2 % (30-36); Mean Corpuscular Hemoglobin 29.2 PG (26-34); Mean Corpuscular Volume 85.5 fL (80-100); Platelet Count 227 X10^3/uL (150-400)
[2025-06-25 08:43] LABS: Alanine Aminotransferase 20 IU/L (<50); Albumin 3.9 g/dL (3.5-5.0); Albumin Globulin Ratio 1.2 (1.0-2.8); Alkaline Phosphatase 76 U/L (38-126); Blood Urea Nitrogen 18 mg/dL (9-20); Calcium 8.8 mg/dL (8.4-10.2); Carbon Dioxide 26 mmol/L (22-32); Chloride 106 mmol/L (98-107); Estimated Glomerular Filt Rate > 60 mL/min (>60); Globulin 3.3 g/dL (1.7-4.1); Glucose 110 mg/dL (70-99); HEMOLYSIS < 15 (0-50); Potassium 3.9 mmol/L (3.4-5.1); Sodium 139 mmol/L (137-145); Total Protein 7.2 g/dL (6.3-8.2)
[2025-06-25] MEDS: ONDANSETRON 4 MG ODT SL (08:49)
[2025-06-25] MEDS: TRIMETH/SULFA 160/800 (DS) TABLET 1 TAB PO (08:49)
[2025-06-25 08:52] LABS: NT-proBNP (BNP-Adult 18+) 226 pg/mL (<125)
[2025-06-25 09:00] VITALS: BP 159/98; PULSE 88; O2SAT 97
== END 2025-06-25 09:28 | disposition home or self-care (01) ==
PROVIDERS: Emergency Provider Emergency Medicine; PCP Family Medicine
DX: L03.317 Cellulitis of buttock (principal); R22.43 Localized swelling, mass and lump, lower limb, bilateral; R52 Pain, unspecified
CPT/HCPCS: 36415; 80053; 83880; 85025; 99283